=== PATIENT | female | born 1930 | race Caucasian/White ===

== ENCOUNTER 2016-05-21 13:48 | Inpatient (IN) ==
--- NOTE | 2016-05-21 10:32 | Discharge Summary ---
Date of Encounter: 05/22/16 Time of Encounter: 06:39 - Discharge Diagnosis (1) Arthritis of left knee Priority: Primary Status: Acute (2) HTN (hypertension) Priority: Secondary Status: Chronic Qualifiers: Hypertension type: unspecified secondary hypertension Qualified Code(s): I15.9 - Secondary hypertension, unspecified; I15 - Secondary hypertension (3) Memory deficit Priority: Secondary Status: Chronic (4) Dementia Priority: Secondary Status: Chronic Qualifiers: Dementia type: unspecified type Dementia behavioral disturbance: without behavioral disturbance Qualified Code(s): F03.90 - Unspecified dementia without behavioral disturbance - Discharge Medications Home Medications: Cranberry Conc/Ascorbic Acid [Cranberry Concentrate Softgel] 1 cap PO DAILY 12/07 [History] Glucosamine HCl/Chondr Canas A Na [Cvs Glucosamine-Chondr Tablet] 1 tab PO DAILY [History] Multivit-Min/Iron/Folic/Lutein [Centrum Silver Women Tablet] 1 tab PO DAILY 12/07 [History] Acetaminophen [Tylenol] 650 mg PO Q6HR PRN #0 tablet 01/06/16 [Rx] Amlodipine [Norvasc] 5 mg PO DAILY 02/15/16 [History] Polyethylene Glycol 3350 [MiraLAX] 17 gm PO DAILY #14 powd.pack 02/18/16 [Rx] Aspirin Enteric Coated [Aspirin EC] 325 mg PO Q12H #30 tablet.dr 05/21/16 [Rx] Bisacodyl [Dulcolax] 10 mg RC DAILY PRN 05/21/16 [History] Cholecalciferol (D-3) [Vitamin D] 1,000 unit PO DAILY 05/21/16 [History] Lactose-Reduced Food [Boost] 237 ml PO TID 05/21/16 [History] OxyCODONE/APAP 5/325 [Percocet 5/325 MG] 1 - 2 tab PO Q4HR PRN #25 tablet [Rx] Sennosides/Docusate Sodium [Senna Plus] 2 tab PO BID 05/21/16 [History] Allergies/Adverse Reactions: Allergies No Known Allergies Allergy (Verified 01/01/16 20:45) Primary care physician: Antonio Voss MD - Patient Status Disposition: Transfer Inpatient Rehab Fac Condition: Good Functional capacity at discharge: uses cane/walker Overall status at discharge: patient is progressing back to baseline - Discharge Instructions Follow Up With: Antonio Voss MD [Primary Care Provider] - - Hospital Course Hospital course: Ms. Metzger is a 85 year old female The patient had an uneventful postoperative course. They received antibiotics and physical therapy and were discharged in stable condition. There will follow -up in the office in 2 weeks. Aspirin DVT prophylaxis - Time Spent with Patient Total time spent providing and/or coordinating discharge services:
--- NOTE | 2016-05-21 13:49 | History & Physical Report ---
Date of Encounter: 05/21/16 Time of Encounter: 13:49 24 Hour HP Update - Instructions Instructions: If the History and Physical is less than 30 days old and was completed prior to A.M. admission and or procedure and has NOT been updated on calendar day of procedure please complete this update prior to performing procedure. - Update Patient reports changes in Medical Condition: No Changes in examination, assessment, or condition: No Changes in Medication: No Preop tests/diagnostics Reviewed: Yes Surgery Remains Indicated: Yes Consent for Planned Operative Procedure(s) Verified: Yes - Pre-Operative Checklist Preoperative Checklist Indicated: No Prophylactic Antibiotic Ordered: Yes Is VTE Prophylaxis Indicated?: Yes
--- NOTE | 2016-05-21 13:56 | Anesthesia Evaluation PreOp ---
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) Other Medical History: Denies Any Significant HX Anesthesia History: No Prior Anesthetic Complications Alcohol Use: none Drug use: none Medications and Allergies Cranberry Conc/Ascorbic Acid [Cranberry Concentrate Softgel] 1 cap PO DAILY 12/07 [History] Glucosamine HCl/Chondr Canas A Na [Cvs Glucosamine-Chondr Tablet] 1 tab PO DAILY [History] Multivit-Min/Iron/Folic/Lutein [Centrum Silver Women Tablet] 1 tab PO DAILY 12/07 [History] Acetaminophen [Tylenol] 650 mg PO Q6HR PRN #0 tablet 01/06/16 [Rx] Amlodipine [Norvasc] 5 mg PO DAILY 02/15/16 [History] Polyethylene Glycol 3350 [MiraLAX] 17 gm PO DAILY #14 powd.pack 02/18/16 [Rx] Aspirin Enteric Coated [Aspirin EC] 325 mg PO Q12H #30 tablet. 05/21/16 [Rx] Bisacodyl [Dulcolax] 10 mg RC DAILY PRN 05/21/16 [History] Cholecalciferol (D-3) [Vitamin D] 1,000 unit PO DAILY 05/21/16 [History] Lactose-Reduced Food [Boost] 237 ml PO TID 05/21/16 [History] OxyCODONE/APAP 5/325 [Percocet 5/325 MG] 1 - 2 tab PO Q4HR PRN #25 tablet [Rx] Sennosides/Docusate Sodium [Senna Plus] 2 tab PO BID 05/21/16 [History] Allergies No Known Allergies Allergy (Verified 01/01/16 20:45) - Meds/Allergy Pre-op Review Medications Reviewed: Yes Allergies Reviewed: Yes Beta Blockers on Current Med List: No Anesthesia Results - Labs Laboratory Tests 05/11/16 05/11/16 05/11/16 13:46 13:46 13:46 WBC 7.9 Hgb 13.1 Hct 41.1 Plt Count 245 PT 11.2 INR 1.0 APTT 30.2 Sodium 138 Potassium 4.1 Chloride 105 Carbon Dioxide 25 BUN 17 Creatinine 0.85 Est GFR ( Amer) > 60 Est GFR (Non-Af Amer) > 60 BUN/Creatinine Ratio 20 - Imaging EKG: report reviewed, image reviewed (SR; RBBB; nonspecific ST-T) Anesthesia Exam Weight: 73 kg NPO (# of Hours): >> 8 hrs - HEENT Pupil (Motor): Pupils equal, EOMI Mallampati: II Teeth: Edentulous Denture Type: Upper: Complete, Lower: Complete Oral Opening: Greater than 3 - 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
[2016-05-21] MEDS ORDERED: *HR* FentaNYL (PF) 100 MCG/2 ML VIAL ONE ×2 (14:07→15:39)
[2016-05-21] MEDS ORDERED: *HR* Propofol 200 MG/20 ML VIAL IVP ONE (14:07)
[2016-05-21] MEDS ORDERED: Lidocaine -MPF 2% 2 ML VIAL ONE (14:07)
[2016-05-21] MEDS ORDERED: CeFAZolin Pre 2,000 MG/100 ML 2,000 MG/100 ML BAG IVPB ONE (14:19)
[2016-05-21] MEDS ORDERED: Ringers Solution, Lactated 1,000 ML IVC SCH (14:30)
[2016-05-21] MEDS ORDERED: ROPIVACAINE HCL/PF 0.5% 30 ML VIAL ONE (14:33)
[2016-05-21] MEDS ORDERED: Tetracaine/PF 20 MG/2 ML AMPUL SPINA ONE (14:33)
[2016-05-21] MEDS ORDERED: Bupivacaine/Clonidine Syringe 1 EACH SYRINGE ONE (14:34)
[2016-05-21] MEDS ORDERED: *HR* Promethazine 25 MG/ML VIAL IVP PRN (15:25)
[2016-05-21] MEDS ORDERED: *HR* HYDROmorphone (PF) 1 MG/ML SYRINGE IVP PRN ×2 (15:25→17:00)
[2016-05-21] MEDS ORDERED: Ondansetron 4 MG/2 ML VIAL IVP ONE (15:25)
[2016-05-21] MEDS ORDERED: Ketorolac 30 MG/ML VIAL ONE (15:45)
--- NOTE | 2016-05-21 15:57 | Orthopedic Operative Note ---
Date of procedure: 05/21/16 Pre-op diagnosis: Left knee arthritis Post-op diagnosis: same Procedure: Procedure: Left Total knee replacement Estimated blood loss: 200 cc Hardware: Arthrex Femur: 5 Tibia: 5 PS insert: 12 Patella: 40 Exam Under anesthesia: Loss full extension and 30 degrees varus alignment flexion 90 degrees Procedural Notes: Grade 4 arthritic changes all 3 compartments. Operative procedure: The patient was brought to the operating room and placed on the operating room table. After general anesthesia was administered the operative knee was examined. Findings were noted in the exam under anesthesia. The operative extremity was prepped and draped in sterile surgical fashion. The patient received IV antibiotics prior to skin incision. A standard midline incision was made centered over the patella. The incision was made through the skin and subcutaneous tissue. A medial parapatellar tendon approach was performed. Care was taken to preserve tissue along the medial aspect of the patella. And to protect the patella tendon. The deep MCL was released off the medial tibia. The infra patella fat pad was excised. Knee was brought into flexion. Patient noted to have grade 4 arthritic changes all 3 compartments. The entry hole was made for the intramedullary femoral guide. The guide was seated in 6 degrees of valgus. Anterior cut was made followed by the distal cut. The ACL the PCL the medial and the lateral menisci were excised. The tibia was subluxed forward. The entry hole was made for the intramedullary tibial guide. Guide was seated to resect 2 mm off the more abnormal side. The knee was brought into flexion the distal femur was sized to a 5. The femoral guide was seated, the anterior cut was made followed by the posterior condylar cut, followed by the chamfer cuts. The finishing guide was seated the box cut was made and the lug holes were drilled. The tibia was sized to a 5, the tibial tray was seated and prepared with the large drill followed by the fin cutter. Trial reduction revealed full extension no varus valgus instability with the appropriate 12 PS Urszula. The patella was everted and cut was made at the level of the insertion of the quadriceps and patella tendon. The patella was sized to a 40 the guide was seated and the lug holes are drilled. Trial reduction revealed excellent patella tracking. All trial components were removed all bony surfaces were irrigated. The tibia was cemented first followed by the femur. The 12 PS Urszula was seated and the knee was brought into full extension. The patella was cemented and held in place with the patellar holding clamp. After the cement had hardened, the knee sat for 2 minutes with a Betadine saline solution. The knee was then irrigated out with 2 L of pulse irrigation. The extensor mechanism was closed with #2 FiberWire suture and #2 PDS suture. The subcutaneous tissue was then irrigated and closed deep with #1 PDS suture superficially with 0 PDS suture and skin was closed with skin simran. The patient was then placed in a sterile dressing and a postoperative brace extubated and transferred to recovery room in stable condition. Anesthesia: GETA Surgeon: Ulisses Rucker (metal forger's assistant Spring MCDANIEL) Condition: stable Disposition: PACU
[2016-05-21] MEDS: Ringers Solution, Lactated 1,000 ML IVC SCH ×2 (16:22→20:25)
[2016-05-21 16:54] LABS: Hematocrit 37.8 % (35.3-44.9); Hemoglobin 12.2 g/dL (11.5-15.4)
--- NOTE | 2016-05-21 16:55 | Anesthesia Evaluation Post Op ---
Date of Encounter: 05/21/16 Time of Encounter: 16:56 - Vital Signs Vital Signs: Vital Signs - Last 8 Hours Temp Pulse Resp BP Pulse Ox 05/21/16 16:42 73 12 135/82 94 L 05/21/16 16:32 76 12 115/79 94 L 05/21/16 16:22 98.9 F 84 12 129/78 97 05/21/16 14:39 98.1 F 57 16 154/78 94 L Intake and Output 05/21/16 05/21/16 05/21/16 07:59 15:59 23:59 Output Total 300 / 300 Balance -300 / -300 Output: Estimated Blood Loss 300 / 300 Other: Weight 72.575 kg Patient Weight 05/21/16 23:59 Weight 72.575 kg - Lungs Lungs: Clear Ascult./Percussion - Airway Airway: Non-obstructed - Cardiovascular Regular Rate, Baseline Rhythm - Mental Status Mental Status: Alert & Oriented, Answers Appropriately - Pain Pain Scale: 0 Pain Scale used: Numeric (1 - 10) - Nausea Vomiting Nausea Vomiting: Not Present - Hydration Hydration: Tolerates oral liquids - Discharge PostOp Status: Transfer Patient to floor
[2016-05-21] MEDS ORDERED: NON-FORMULARY MEDICATION 1 EACH EACH (Lactose-Reduced Food [Boost] 237 ML) PO SCH (17:00)
[2016-05-21] MEDS ORDERED: Sennosides 8.6 MG TABLET PO PRN (17:00)
[2016-05-21] MEDS ORDERED: *HR* OxyCODONE Immed Rel 5 MG TABLET PO PRN (17:00)
[2016-05-21] MEDS ORDERED: Acetaminophen 325 MG TABLET PO PRN (17:00)
[2016-05-21] MEDS ORDERED: MOM Conc 10 ML UD.LIQ PO PRN (17:00)
[2016-05-21] MEDS ORDERED: Naloxone 0.4 MG/ML INJ IVP PRN (17:00)
[2016-05-21] MEDS ORDERED: Ondansetron 4 MG/2 ML VIAL IVP PRN (17:00)
[2016-05-21] MEDS ORDERED: Bisacodyl 10 MG RECTAL SUPPOSITORY RC PRN (17:00)
[2016-05-21] MEDS ORDERED: Ketorolac 15 MG/ML VIAL IVP ONE (17:53)
[2016-05-21] MEDS ORDERED: *HR* Enoxaparin 30 MG/0.3 ML SYRINGE SQ SCH (18:00)
--- NOTE | 2016-05-21 18:04 | Anesthesia Procedures ---
Date of Encounter: 05/21/16 Time of Encounter: 18:02 Procedures: Anesthesia - Nerve Block Procedure Date: 05/21/16 Time: 15:00 Allergies/Adv Reactions: nkda Pre-op Diagnosis: L knee pain Surgical Procedure: L total knee Checklist: Correct Patient Identifier, Correct procedure, History checked Correct side: Left Blood Thinner: Yes Monitor Applied: EKG, BP, Pulse Oximetry Supplemental Oxygen via Nasal Cannula (L/min): 2 Sedation: Fentanyl (mcg): 100 Indication: Post Op Analgesia Pre-op Neuro Deficits: No Block Type: Femoral Catheter placed: No Sterile Technique: No Ultrasound used: Yes Anatomy identified: Yes Visual spread of Local: Yes Neuro Stimulation: Yes Nerve Stimulator Range: 0.2 - 0.4 mA Blood on Needle Aspiration: No Smooth Injection of Local: Yes Pain with Injection of Local: No Prep: Chlorhexadine Needle: 22 x 50 mm Stimuplex Local: 0.25% Bupivicaine w/Clonidine 20 mcg/cc Volume (cc): 20 Number of Attempts: 1 Complications: None/effective block
[2016-05-21] MEDS: *HR* Enoxaparin 30 MG/0.3 ML SYRINGE SQ SCH (18:09)
[2016-05-21] MEDS: Sennosides/Docusate Sodium TABLET PO SCH (20:21)
[2016-05-21] MEDS ORDERED: Temazepam 15 MG CAPSULE PO PRN (21:00)
[2016-05-22] MEDS: ceFAZolin 2,000 MG in D5% in Water 100 ML IVPB SCH ×2 (00:36→07:10)
[2016-05-22] MEDS: *HR* Enoxaparin 30 MG/0.3 ML SYRINGE SQ SCH (05:26)
--- NOTE | 2016-05-22 06:40 | Orthopedics Progress Note ---
Date of Encounter: 05/22/16 Time of Encounter: 06:40 - Assessment and Plan (1) Arthritis of left knee Current Visit: Yes Status: Acute (2) HTN (hypertension) Current Visit: No Status: Chronic Qualifiers: Hypertension type: unspecified secondary hypertension Qualified Code(s): I15.9 - Secondary hypertension, unspecified; I15 - Secondary hypertension (3) Memory deficit Current Visit: No Status: Chronic (4) Dementia Current Visit: No Status: Chronic Qualifiers: Dementia type: unspecified type Dementia behavioral disturbance: without behavioral disturbance Qualified Code(s): F03.90 - Unspecified dementia without behavioral disturbance Subjective Interval history: Patient was seen this morning doing well without complaints. Afebrile vital signs stable. Operative extremity: Neurovascularly intact Dressing clean dry and intact Calves nontender Assessment and plan: Continue with postoperative care Hematocrit 37 discharged today Objective Vital signs: Vital Signs Temp Pulse Resp BP Pulse Ox 05/22/16 06:22 97.5 F L 97 16 131/76 93 L 05/22/16 04:00 97.5 F L 52 16 139/87 93 L 05/22/16 00:00 97.7 F 65 17 116/71 95 05/21/16 20:20 98.3 F 63 15 130/77 94 L 05/21/16 20:07 95 05/21/16 19:30 98.2 F 77 16 133/73 95 05/21/16 18:17 98.1 F 47 14 130/68 98 05/21/16 17:46 62 98 05/21/16 17:43 54 12 98 05/21/16 17:39 55 12 143/80 97 05/21/16 17:33 42 12 144/74 99 05/21/16 17:24 45 12 136/76 97 05/21/16 17:23 40 05/21/16 17:15 97.9 F 48 12 129/73 93 L 05/21/16 17:00 64 14 131/76 94 L 05/21/16 16:52 98.6 F 68 14 132/79 94 L 05/21/16 16:42 73 12 135/82 94 L 05/21/16 16:32 76 12 115/79 94 L 05/21/16 16:22 98.9 F 84 12 129/78 97 05/21/16 14:39 98.1 F 57 16 154/78 94 L Intake and Output 05/21/16 05/21/16 05/22/16 15:59 23:59 07:59 Intake Total 2370 / 2370 550 / 550 Output Total 300 / 300 Balance 2070 / 2070 550 / 550 Intake: IV Fluids 1999 / 1999 100 / 100 Lactated Ringers 1,000 ML 1999 / 1999 @ 75 mls/hr IVC .[id number] [id number] Rx#:[id number] Ancef 2,000 MG In 100 / 100 Dextrose 5% 100 ML @ 200 mls/hr IVPB Q8H OZZY Rx#: [id number] Oral 370 / 370 450 / 450 Output: Estimated Blood Loss 300 / 300 Other: # Urine Diapers 1 1 Weight 72.575 kg - Labs CBC & BMP: 05/21/16 16:44 - VTE Documentation of Mechanical Device: Venous foot pump, device Consult Discharge Plan - Plan Referrals: Antonio Voss MD [Primary Care Provider] -
[2016-05-22 06:52] LABS: Hematocrit 34.9 % (35.3-44.9); Hemoglobin 11.6 g/dL (11.5-15.4)
[2016-05-22 07:02] LABS: BUN/Creatinine Ratio 20 (6-26); Blood Urea Nitrogen 19 mg/dL (7-20); Calcium 9.7 mg/dL (8.6-10.8); Carbon Dioxide 23 mEq/L (19-29); Chloride 103 mEq/L (98-109); Glucose 126 mg/dL (70-99); Osmolality,Calculated 284 (280-300); Potassium 4.4 mEq/L (3.5-4.5); Sodium 135 mEq/L (136-145); eGFR For African Americans > 60 (> 60); eGFR For Non-African Americans 56 (> 60)
[2016-05-22] MEDS: Sennosides/Docusate Sodium TABLET PO SCH (08:08)
[2016-05-22] MEDS: *HR* OxyCODONE Immed Rel 5 MG TABLET PO PRN ×2 (08:11→12:18)
[2016-05-22] MEDS ORDERED: (Glucosamine Hcl/Chondr Su A Na [Cvs Glucosamine-Chon PO SCH (09:00)
[2016-05-22] MEDS ORDERED: CRANBERRY PO SCH (09:00)
[2016-05-22] MEDS ORDERED: ASCORBIC ACID PO SCH (09:00)
[2016-05-22] MEDS ORDERED: amLODIPine 5 MG TABLET PO SCH (09:00)
[2016-05-22] MEDS ORDERED: Cholecalciferol (D-3) 1,000 UNIT TABLET PO SCH (09:00)
[2016-05-22] MEDS ORDERED: Multivit/Ca/Min/Fe/FA 1 TAB TABLET PO SCH (09:00)
[2016-05-22 11:18] VITALS: BP 130/64
--- NOTE | 2016-05-23 08:59 | Electrocardiograph Report ---
[address] [place], [place] [address] Test Date: 2016-05-21 Pat Name: Rhianna Metzger Department: 114 Room: 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
== END 2016-05-22 13:12 | DRG 470 ==
LOC: SAMDAY 13:48 → 3NENU 17:00
PROVIDERS: ADMIT Orthopaedic Surgery; ATTEND Orthopaedic Surgery

== ENCOUNTER 2018-09-23 13:13 | Inpatient (IN) ==
[2018-09-23] MEDS ORDERED: Acetaminophen 325 MG TABLET PO PRN (21:04)
[2018-09-23] MEDS ORDERED: Ipratropium/Albuterol Neb 3 ML IH PRN (21:04)
[2018-09-23] MEDS ORDERED: Ondansetron 4 MG/2 ML VIAL IVP PRN (21:04)
[2018-09-23] MEDS: Ringers Solution, Lactated 1,000 ML IVC SCH (21:50)
[2018-09-23] MEDS: Azithromycin 500 MG in D5% in Water 250 ML IVPB SCH (21:52)
[2018-09-23 21:59] LABS: Basophils # 0.1 K/mcL (0.0-0.2); Basophils % 0.8 %; Eosinophils # 0.2 K/mcL (0.0-0.6); Eosinophils % 2.1 %; Hematocrit 38.9 % (35.3-44.9); Immature Granulocytes % 1.5 % (0-4); Lymphocytes # 1.2 K/mcL (0.6-4.6); Lymphocytes % 12.4 %; Mean Corpuscular HGB Conc 33.4 g/dL (31.6-35.5); Mean Corpuscular Hemoglobin 31.6 pg (28.0-33.3); Mean Corpuscular Volume 94.6 fL (83.0-100.0); Mean Platelet Volume 9.4 fL (9.4-12.4); Monocytes % 10.9 %; Neutrophils # 6.7 K/mcL (1.6-8.9); Platelet Count 258 K/mcL (140-400); Red Blood Count 4.11 M/mcL (3.82-4.97); Red Cell Distribution Width 12.7 % (11.5-14.5); Segmented Neutrophils % 72.3 %; White Blood Count 9.3 K/mcL (4.3-11.1)
[2018-09-23] MEDS ORDERED: Vancomycin 0 MG in 0.9 % Sodium Chloride 250 ML IVPB SCH (22:00)
[2018-09-23 22:06] LABS: INR 1.2; Prothrombin Time 13.7 Seconds (9.4-12.1)
[2018-09-23 22:09] LABS: Activated Partial Thrombo Time 38.6 Seconds (26.0-36.0)
--- NOTE | 2018-09-23 22:16 | Internal Med History&Physical ---
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 Over there she was diagnosed with a pneumonia and started on empiric antibiotics. However, it was noted that she was not improving and her oxygenation became worse requiring placement on high flow oxygen to maintain adequate saturation levels. A CT of her chest was done today which reportedly showed left lung collapse. On my review of the CT scan there is significant left pleural effusion causing compressive atelectasis as well as extensive consolidations and intrinsic atelectasis possibly from mucous plugging. She arrives here hemodynamically stable and has no complaints at this time. She expresses her wishes to be DNR [facility] and has the documents for this. Vitals: Reviewed General: Well-developed elderly woman lying in bed in no acute distress. Skin: Warm and dry. HEENT: Moist mucous membranes. Mild conjunctivae pallor. Neck: No carotid bruits. No palpable thyroid. Chest: Reduced thoracic expansion with significantly diminished breath sounds in the left lung field. Heart: Normal S1 & S2; rhythmic. No rubs or murmurs. Abdomen: Non-distended, soft and non-tender to palpation. No peritoneal reaction. Extremities: No clubbing, cyanosis or edema. No calf tenderness. Normal distal pulses. Neurological: Awake, alert and oriented to person, place. No focal deficits. Psych: Affect appropriate. Assessment/Plan 1. Acute respiratory failure: Suspect secondary to extensive pneumonia complicated by parapneumonic pleural effusions as well as atelectasis from mucous plugging possibly. She is currently doing well on high flow oxygen however before this admission she was never on home oxygen at all. We will continue supplemental oxygen as needed, provide nebulizer therapy overnight and consult the pulmonary service for consideration of bronchoscopy if deemed feasible. Consideration should also be given to a thoracentesis to decompress the pleural space. 2. Pneumonia: Complicated as noted above. We will get another set of blood cultures and attempt to obtain sputum cultures if she can expectorate. Check urine antigen serologies. Follow culture data from [facility]. Continue empiric vancomycin, cefepime and azithromycin until we ensure stability and appr opriate de-escalation can be done. If bronchoscopy is done, extensive cultures should be sent. 3. Hypertension: Well controlled on amlodipine. 4. Pulmonary embolism: Reportedly on apixaban. We need to obtain medication reconciliation. In the interim anticoagulant will be on hold in anticipation of any procedures done. 5. DVT prophylaxis: SubQ heparin ordered. Past Med Surg Social Fam HX - Past Medical History Medical history: arthritis Additional medical history: htn. arthritis of knee Psychiatric history: no psych history - Past Surgical History Surgical History: hysterectomy Additional surgical history: D&C. Hysterectomy. Left femur. left hip - Social History Smoking Status: Never smoker Smokeless Tobacco Status: No Alcohol use: none Drug use: none - Family History Mother Family Member Ethnicity: Non- Twin of Family Member: Yes, Identical Living Status: Hx Family Cardiac Disorders: No Hx Family Respiratory Disorders: No Hx Family Cancer: No Hx Family GI Disorders: No Hx Family Endocrine Disorder: No Hx Family Neuromuscular Disorders: No Hx Family Neurologic Disorders: No Hx Family HEENT Disorders: No Hx Family Autoimmune Disorders: No Internal Medicine - H&P: Meds Cranberry Conc/Ascorbic Acid [Cranberry Concentrate Softgel] 1 cap PO DAILY 01/02/16 [History] Glucosamine HCl/Chondr Canas A Na [Cvs Glucosamine-Chondr Tablet] 1 tab PO DAILY 01/02/16 [History] Multivit-Min/Iron/Folic/Lutein [Centrum Silver Women Tablet] 1 tab PO DAILY 01/02/16 [History] Acetaminophen [Tylenol] 650 mg PO Q6HR PRN #0 tablet 01/06/16 [Rx] amLODIPine [Norvasc] 5 mg PO DAILY 02/15/16 [History] Polyethylene Glycol 3350 [MiraLAX] 17 gm PO DAILY #14 powd.pack 02/18/16 [Rx] Aspirin Enteric Coated [Aspirin EC] 325 mg PO Q12H #30 tablet. 05/21/16 [Rx] Bisacodyl [Dulcolax] 10 mg RC DAILY PRN 05/21/16 [History] Cholecalciferol (D-3) [Vitamin D] 1,000 unit PO DAILY 05/21/16 [History] Lactose-Reduced Food [Boost] 237 ml PO TID 05/21/16 [History] OxyCODONE/APAP 5/325 [Percocet 5/325 MG] 1 - 2 tab PO Q4HR PRN #25 tablet 05/21/16 [Rx] Sennosides/Docusate Sodium [Senna Plus] 2 tab PO BID 05/21/16 [History] Allergy/AdvReac Type Severity Reaction Status Date / Time No Known Allergies Allergy Verified 01/01/16 20:45 All Systems PM: A 10-system review of systems was performed and is negative for pertinent findings except as documented above in the HPI. - Constitutional Vitals: Temp Pulse Resp BP Pulse Ox 98.0 F 99 18 174/93 93 09/23/18 20:55 09/23/18 20:55 09/23/18 20:55 09/23/18 20:55 09/23/18 21:09 Exam: . Internal Med - H&P Results - Labs CBC & Chem 7: 09/23/18 21:39 Labs: Short CBC 09/23/18 Range/Units 21:39 WBC 9.3 (4.3-11.1) K/mcL Hgb 13.0 (11.5-15.4) g/dL Hct 38.9 (35.3-44.9) % Plt Count 258 (140-400) K/mcL Neutrophils # 6.7 (1.6-8.9) K/mcL - Time Spent With Patient Total time spent is greater than 50% in coordination of care (as documented) at patient's floor/unit and/or counseling patient:
[2018-09-23 22:20] LABS: Alanine Aminotransferase 31 Units/L (7-52); Albumin 3.7 g/dL (3.5-5.7); Albumin/Globulin Ratio 1.2 (1.1-2.2); Alkaline Phosphatase 73 Units/L (34-104); Aspartate Amino Transferase 38 Units/L (13-39); BUN/Creatinine Ratio 12 (6-26); Bilirubin,Direct 0.1 mg/dL (0.0-0.2); Bilirubin,Indirect 0.5 mg/dL (0.0-1.2); Bilirubin,Total 0.6 mg/dL (0.3-1.0); Blood Urea Nitrogen 7 mg/dL (8-23); Carbon Dioxide 22 mEq/L (23-29); Chloride 102 mEq/L (98-107); Glucose 146 mg/dL (70-105); Osmolality,Calculated 273 (280-300); Potassium 3.8 mEq/L (3.5-5.1); Sodium 131 mEq/L (136-145); Total Protein 6.7 g/dL (6.4-8.9); eGFR For African Americans > 60 (> 60); eGFR For Non-African Americans > 60 (> 60)
[2018-09-23] MEDS: Ipratropium/Albuterol Neb 3 ML IH SCH (23:39)
[2018-09-23] MEDS: Cefepime HCl 1,000 MG in 0.9 % Sodium Chloride Mini Bag 100 ML IVPB SCH (23:43)
[2018-09-24] MEDS: Ipratropium/Albuterol Neb 3 ML IH SCH ×2 (04:14→07:35)
[2018-09-24] MEDS: *HR* Heparin 5,000 UNIT/ML VIAL SQ SCH ×2 (06:25→17:45)
--- NOTE | 2018-09-24 06:34 | Pulmonology Consult Note ---
Date of Encounter: 09/24/18 Time of Encounter: 06:33 Assessment and Plan (1) Acute respiratory failure with hypoxia Current Visit: Yes Status: Acute This is likely secondary to pneumonia complicated by mucous plugging and volume loss some contribution from underlying pleural effusion but likely this is trivial. Recommend continuation of oxygen to keep saturation around 92%. She may benefit from BiPAP especially at night in the acute situation or for any increased work of breathing. Out of bed to chair and early ambulation are effective in mitigating effects of atelectasis leading to VQ mismatch and hypoxia (2) Pneumonia Current Visit: Yes Status: Acute Patient has a left-sided unresolved infiltrate and likely mucous plug. She will need formal speech and swallow evaluation if not already performed in the outside facility I did not see any record of this in my review of her chart. There is concern here for chronic aspiration and inability to effectively cough out secretions. She will need bronchopulmonary hygiene including flutter valve while inpatient and incentive spirometry Agree with antimicrobial coverage to cover for hospital associated pathogens such as MRSA and Pseudomonas until results of bronchoscopy come back Qualifiers: Laterality: left Lung location: lower lobe of lung Qualified Code(s): B59 - Pneumocystosis (3) Mucus plugging of bronchi Current Visit: Yes Status: Acute A bronchoscopy is recommended. The procedure , risks, benefits, complications, and expected outcomes have been reviewed. Benefits of diagnosis, as well as risks to include bleeding, infection, pneumothorax which may require surgical intervention, and in a small population. The patient is aware that sometimes test is nondiagnostic. Discussed with patient and her daughter and they agree to proceed. Bronchoscopy planned for around noon today this is approximately 24 hours from last dose of DOAC Keep nothing by mouth until procedure (4) Pleural effusion Current Visit: Yes Status: Acute Family small left-sided effusion possibly parapneumonic no clear complex features on the CT scan be difficult to aspirate at bedside and likely unnecessary at this point I think the most important procedures bronchoscopy and that should improve her oxygenation. If further concern post bronchoscopy can consider thoracentesis over the next 24-48 hours. Thank you for the consultation History of Present Illness Consult date: 09/24/18 Requesting physician: Nohemi Burgess Reason for consult: pneumonia Chief complaint: Shortness of Breath History of present illness: This is a pleasant 87-year-old woman with a past medical history of for pulmonary embolus on DOAC (Apixaban) who was transferred from [facility] to [place] overnight for pneumonia. Apparently the patient had been on broad-spectrum antibiotics for several days at [facility] but had failure to improve in fact was requiring high flow oxygen. A CT PE was performed which is negative for filling defect was not notable for significant left sided volume loss and pleural effusion. There was concern for possible mucous plugging and parapneumonic effusion. Pulmonary was consulted for further evaluation. The patient's other past medical history is significant for early dementia complicated by hip fracture approximately 3 years ago which resulted in ongoing care in a custodial facility in [place]. I asked the patient how she was feeling today and she was very sleepy but easily arousable say that she is a bit short of breath and having difficulty coughing up phlegm. Oxygen saturation appears to be at around 13 L high flow nasal cannula right now. In the room with her daughter Queenie who is her healthcare power of it teacher and primary decision maker. She states that her mother was admitted to [facility] in Wednesday and treated for pneumonia unfortunately clinical course was getting worse she had spiking fevers and imaging as outlined above prior to transfer to [place]. Per report the patient is not wearing oxygen at baseline is a lifelong nonsmoker with no significant industrial or occupational exposures. Last dose of anticoagulation appears to have been at the latest yesterday sometime prior to transfer although the exact timing is not clear Past Med Surg Social Fam HX - Past Medical History Medical history: arthritis Additional medical history: htn. arthritis of knee Psychiatric history: no psych history - Past Surgical History Surgical History: hysterectomy Additional surgical history: D&C. Hysterectomy. Left femur. left hip - Social History Smoking Status: Never smoker Smokeless Tobacco Status: No Alcohol use: none Drug use: none - Family History Mother Family Member Ethnicity: Non- Twin of Family Member: Yes, Identical Living Status: Hx Family Cardiac Disorders: No Hx Family Respiratory Disorders: No Hx Family Cancer: No Hx Family GI Disorders: No Hx Family Endocrine Disorder: No Hx Family Neuromuscular Disorders: No Hx Family Neurologic Disorders: No Hx Family HEENT Disorders: No Hx Family Autoimmune Disorders: No Medications and Allergies Cranberry Conc/Ascorbic Acid [Cranberry Concentrate Softgel] 1 cap PO DAILY 01/02/16 [History] Glucosamine HCl/Chondr Canas A Na [[facility] Glucosamine-Chondr Tablet] 1 tab PO DAILY 01/02/16 [History] Multivit-Min/Iron/Folic/Lutein [Centrum Silver Women Tablet] 1 tab PO DAILY 01/02/16 [History] Acetaminophen [Tylenol] 650 mg PO Q6HR PRN #0 tablet 01/06/16 [Rx] amLODIPine [Norvasc] 5 mg PO DAILY 02/15/16 [History] Polyethylene Glycol 3350 [MiraLAX] 17 gm PO DAILY #14 powd.pack 02/18/16 [Rx] Aspirin Enteric Coated [Aspirin EC] 325 mg PO Q12H #30 tablet. 05/21/16 [Rx] Bisacodyl [Dulcolax] 10 mg RC DAILY PRN 05/21/16 [History] Cholecalciferol (D-3) [Vitamin D] 1,000 unit PO DAILY 05/21/16 [History] Lactose-Reduced Food [Boost] 237 ml PO TID 05/21/16 [History] OxyCODONE/APAP 5/325 [Percocet 5/325 MG] 1 - 2 tab PO Q4HR PRN #25 tablet 05/21/16 [Rx] Sennosides/Docusate Sodium [Senna Plus] 2 tab PO BID 05/21/16 [History] Allergy/AdvReac Type Severity Reaction Status Date / Time No Known Allergies Allergy Verified 01/01/16 20:45 All Systems: The remainder of the systems were reviewed and are negative Physical Examination Vital Signs: Vital Signs, Last 4 Hours Temp Pulse Resp BP Pulse Ox 09/24/18 05:01 98.0 F 94 18 157/90 94 09/24/18 04:15 16 92 General appearance: no acute distress, other (Sleepy but easily arousable) Eyes: nonicteric ENT: other (Edentulous) Neck: supple Effort: mildly labored Auscultation: left: diminished breath sounds, bilateral: rhonchi Cardiovascular: regular rate and rhythm Gastrointestinal: normoactive bowel sounds, soft, non-tender Integumentary: normal Extremities: edema (Trace lower extremity edema) Musculoskeletal: no deformities normal mental status, non-focal exam, pupils equal and round, CN II-XII normal mood appropriate Results - Laboratory Findings CBC and BMP: 09/23/18 21:39 09/23/18 21:39 PT/INR, D-dimer PT 13.7 Seconds (9.4-12.1) H 09/23/18 21:39 Abnormal lab findings: Abnormal lab results PT 13.7 Seconds (9.4-12.1) H 09/23/18 21:39 APTT 38.6 Seconds (26.0-36.0) H 09/23/18 21:39 Sodium 131 mEq/L (136-145) L 09/23/18 21:39 Carbon Dioxide 22 mEq/L (23-29) L 09/23/18 21:39 BUN 7 mg/dL (8-23) L 09/23/18 21:39 Creatinine 0.59 mg/dL (0.60-1.20) L 09/23/18 21:39 Glucose 146 mg/dL (70-105) H 09/23/18 21:39 Calculated Osmolality 273 (280-300) L 09/23/18 21:39 Lactic Acid 2.7 mmol/L (0.5-2.2) H 09/24/18 02:07 - Microbiology Findings Microbiology Findings: Microbiology, Last 48 Hours 09/23/18 21:47 Blood Culture - Preliminary Peripheral Venipuncture Culture is incubating and being continuously monito red for growth. Final report to follow. 09/23/18 21:39 Blood Culture - Preliminary Peripheral Venipuncture Culture is incubating and being continuously monitored for growth. Final report to follow. - Diagnostic Findings CT scan - chest: report reviewed, image reviewed (Left volume loss with small left-sided pleural effusion there is some aeration of the left upper lobe dense consolidation in the left lower) - Clinical Findings Intake & Output: Intake & Output 09/23/18 09/23/18 09/24/18 15:59 23:59 07:59 Weight 89.7 kg Consult Discharge Plan - Plan Referrals: NONE,PCP [Primary Care Provider] -
[2018-09-24] MEDS: Cefepime HCl 1,000 MG in 0.9 % Sodium Chloride Mini Bag 100 ML IVPB SCH ×2 (08:17→15:49)
[2018-09-24] MEDS: amLODIPine 5 MG TABLET PO SCH (08:18)
--- NOTE | 2018-09-24 12:26 | Anesthesia Evaluation PreOp ---
Date of Encounter: 09/24/18 Time of Encounter: 12:31 - Past History Planned Operation: Bronchoscopy Cardiac History: HTN Pulmonary History: Other (Hx PE Anticoagulated on Apixaban. Admitted 09/23/2018 w/ pneumonia/extensive consolidation/"Lung collapse" presumptively from mucus plugging) MERCHANDISE MARKER History: Denies Any Significant HX Other Medical History: Denies Any Significant HX Anesthesia History: No Prior Anesthetic Complications, Past Anesthesia (D&C, Hyster, L-femur, L-Hip) Alcohol Use: none Drug use: none Medications and Allergies Cranberry Conc/Ascorbic Acid [Cranberry Concentrate Softgel] 1 cap PO DAILY 01/02/16 [History] Glucosamine HCl/Chondr Canas A Na [[facility]vs Glucosamine-Chondr Tablet] 1 tab PO DAILY 01/02/16 [History] Multivit-Min/Iron/Folic/Lutein [Centrum Silver Women Tablet] 1 tab PO DAILY 01/02/16 [History] Acetaminophen [Tylenol] 650 mg PO Q6HR PRN #0 tablet 01/06/16 [Rx] amLODIPine [Norvasc] 5 mg PO DAILY 02/15/16 [History] Polyethylene Glycol 3350 [MiraLAX] 17 gm PO DAILY #14 powd.pack 02/18/16 [Rx] Aspirin Enteric Coated [Aspirin EC] 325 mg PO Q12H #30 tablet.dr 05/21/16 [Rx] Bisacodyl [Dulcolax] 10 mg RC DAILY PRN 05/21/16 [History] Cholecalciferol (D-3) [Vitamin D] 1,000 unit PO DAILY 05/21/16 [History] Lactose-Reduced Food [Boost] 237 ml PO TID 05/21/16 [History] OxyCODONE/APAP 5/325 [Percocet 5/325 MG] 1 - 2 tab PO Q4HR PRN #25 tablet 05/21/16 [Rx] Sennosides/Docusate Sodium [Senna Plus] 2 tab PO BID 05/21/16 [History] Allergy/AdvReac Type Severity Reaction Status Date / Time No Known Allergies Allergy Verified 01/01/16 20:45 - Meds/Allergy Pre-op Review Medications Reviewed: Yes Allergies Reviewed: Yes Beta Blockers on Current Med List: No Anesthesia Results - Labs 09/23/18 21:39 09/23/18 21:39 Laboratory Tests 01/02/16 09/23/18 09/23/18 04:20 21:39 21:39 INR 1.2 APTT 38.6 H Est GFR (Non-Af Amer) > 60 Phosphorus 4.5 Calcium 9.0 Magnesium 2.0 Laboratory Results 09/24/18 09/24/18 02:07 04:45 Lactic Acid 2.7 H 1.8 - Imaging EKG: report reviewed (54bpm - SINUS BRADYCARDIA WITH OCCASIONAL VENTRICULAR PREMATURE COMPLEXES LOW QRS VOLTAGE IN PRECORDIAL LEADS INCOMPLETE RIGHT BUNDLE BRANCH BLOCK PROLONGED QT INTERVAL Electronically Signed On 05-23-2016 8:57:51 EDT by Iain Momin MD) Anesthesia Exam Vital Signs Temp Pulse Resp BP Pulse Ox 09/24/18 11:32 198/90 09/24/18 11:29 16 95 09/24/18 10:26 97.4 F L 65 16 198/93 95 09/24/18 07:36 18 93 09/24/18 07:07 99.3 F 91 18 166/92 93 09/24/18 05:01 98.0 F 94 18 157/90 94 09/24/18 04:15 16 92 09/23/18 23:45 19 93 09/23/18 23:26 98.4 F 99 19 159/80 93 09/23/18 21:09 93 09/23/18 20:55 98.0 F 99 18 174/93 92 Intake and Output 09/23/18 09/24/18 09/24/18 23:59 07:59 15:59 Intake Total 100 / 200 100 / 200 Balance 100 / 200 100 / 200 Intake: IV Fluids 100 / 200 100 / 200 Maxipime 1,000 MG In 0.9 % 100 / 200 100 / 200 Sodium Chloride (Mini-Bag +) 100 ML @ 200 mls/hr IVPB Q8HR [facility] Rx#:[id number] Other: # Urine Diapers 1 1 # Bowel Movement Diapers 1 Weight 89.7 kg Height: 5'5" Weight: 197# BMI = 33 NPO (# of Hours): MNOc - HEENT Pupil (Motor): Pupils equal, EOMI Mallampati: II Teeth: Edentulous Oral Opening: Greater than 3 - MERCHANDISE MARKER LOC: Oriented MERCHANDISE MARKER Motor: Normal RUE, Normal LUE, Normal RLE, Normal LLE, Normal Face MERCHANDISE MARKER Sensory: Normal: RUE, LUE, RLE, LLE, Face - Cardiac Rhythm: Regular Murmur: None - Pulmonary Breath Sounds: bilateral Clear Respiratory Effort: Symmetrical Anesthesia Assess/Plan ASA Score: 3 (HTN, Hx PE, Acute respiratory failure) Level of consciousness: Cooperative, Oriented, Tranquil Anesthetic Plan: General Monitoring Plan: Standard Monitors Recovery Plan: PACU (ds) Anes Supervising Prov Stmt: PT seen/evaluated, R&B Discussed, questions answered and consent obtained. Lo Zaman MD
[2018-09-24] MEDS: Ringers Solution, Lactated 1,000 ML IVC SCH (12:32)
[2018-09-24] MEDS ORDERED: *HR* Propofol 200 MG/20 ML VIAL IVP ONE (12:49)
[2018-09-24] MEDS ORDERED: *HR* FentaNYL (PF) 100 MCG/2 ML VIAL ONE (12:49)
[2018-09-24] MEDS ORDERED: Lidocaine -MPF 4% 5 ML AMPUL ONE (12:51)
[2018-09-24] MEDS ORDERED: Dexamethasone 4 MG/ML VIAL ONE (12:51)
[2018-09-24] MEDS ORDERED: Lidocaine -MPF 2% 2 ML VIAL ONE (12:51)
[2018-09-24] MEDS ORDERED: *HR* Succinylcholine 200 MG/10 ML VIAL IVP ONE (12:51)
[2018-09-24] MEDS ORDERED: Ondansetron 4 MG/2 ML VIAL ONE (12:51)
[2018-09-24] MEDS ORDERED: *HR* PHENYLEPHRINE 1,000 MCG/10 ML SYRINGE IVP ONE (13:46)
[2018-09-24] MEDS ORDERED: Ipratropium/Albuterol Neb 3 ML ONE (14:06)
--- NOTE | 2018-09-24 16:10 | Internal Med Progress Note ---
Hospitalist Progress Note - Encounter Date of Encounter: 09/24/18 Time of Encounter: 16:07 - Subjective Interval History: Evaluated patient earlier today. She was feeling somewhat better compared to yesterday. Was nothing by mouth and awaiting bronchoscopy. Denies any chest pain. No fevers or chills overnight. - Exam Vitals: Temp Pulse Resp BP Pulse Ox 99.3 F 73 17 128/70 91 09/24/18 15:43 09/24/18 15:43 09/24/18 15:43 09/24/18 15:43 09/24/18 15:43 Exam: General: Patient is alert, no acute distress, oriented x 3 ENT: Mucous membranes moist Respiratory: Diminished breath sounds at left base Cardiovascular: Regular rate and rhythm. s1 and s2 normal No clicks, rubs, gallops, or murmurs. No pedal edema Abdomen: Abdomen is soft, nontender. Bowel sounds are present Musculoskeletal: Spontaneously moving all extremities Skin: warm, dry, intact. Neuro: Alert oriented x 3 normal cranial nerves, no focal deficits - Assessment and Plan (1) Acute respiratory failure with hypoxia Current Visit: Yes Status: Acute (2) Pneumonia Current Visit: Yes Status: Acute (3) Mucus plugging of bronchi Current Visit: Yes Status: Acute (4) History of pulmonary embolism Current Visit: Yes Status: Acute (5) HTN (hypertension) Current Visit: Yes Status: Chronic DVT Prophylaxis: Patient is presently on subcutaneous heparin for DVT prophylaxis - Summary of Assessment and Plan Summary of Assessment and Plan: Acute hypoxic respiratory failure: Patient remains on nasal cannula at this time. Due to underlying pneumonia and atelectasis with concern for mucous plugging. Wean FiO2 as tolerated. Mucous plugging of bronchi: Patient underwent bronchoscopy today which showed throughout left tracheobronchial tree and also a mucous plug in the right mainstem bronchus. BAL was performed. Pneumonia: Involving left lower lobe. Community-acquired vs aspiration. Patient currently on cefepime, azithromycin and vancomycin. Will stop cefepime and place patient on Zosyn instead to better treat cover for aspiration. Will also check a MRSA screen. Follow BAL cultures. Blood cultures have been negative so far. Legionella and streptococcal antigens have also been negative. History of pulmonary embolism: Eliquis held for bronchoscopy. Resume Eliquis tomorrow. In the meantime patient on DVT prophylaxis with subcutaneous heparin. Essential hypertension: Blood pressure is well controlled. Her blood pressure was elevated earlier today but she received intravenous hydralazine with improvement. Continue Norvasc. High risk for complications. - Time Spent with Patient Total time spent is greater than 50% in coordination of care (as documented) at patient's floor/unit and/or counseling patient: Internal Medicine: Result - Labs CBC & Chem 7: 09/23/18 21:39 09/23/18 21:39 Labs: Short CBC 09/23/18 Range/Units 21:39 WBC 9.3 (4.3-11.1) K/mcL Hgb 13.0 (11.5-15.4) g/dL Hct 38.9 (35.3-44.9) % Plt Count 258 (140-400) K/mcL Neutrophils # 6.7 (1.6-8.9) K/mcL BMP 09/23/18 21:39 Sodium 131 L Potassium 3.8 Chloride 102 Carbon Dioxide 22 L BUN 7 L Creatinine 0.59 L Glucose 146 H Calcium 9.0 Liver Function 09/23/18 Range/Units 21:39 Total Bilirubin 0.6 (0.3-1.0) mg/dL Direct Bilirubin 0.1 (0.0-0.2) mg/dL AST 38 (13-39) Units/L ALT 31 (7-52) Units/L Alkaline Phosphatase 73 (34-104) Units/L Albumin 3.7 (3.5-5.7) g/dL - ABG Interpretation ABG results: PT/INR, D-dimer PT 13.7 Seconds (9.4-12.1) H 09/23/18 21:39 Consult Discharge Plan - Plan Referrals: NONE,PCP [Primary Care Provider] - (2) Pneumonia Qualifiers: Pneumonia type: due to unspecified organism Laterality: left Lung location: lower lobe of lung Qualified Code(s): J18.1 - Lobar pneumonia, unspecified organism (5) HTN (hypertension) Qualifiers: Hypertension type: essential hypertension Qualified Code(s): I10 - Essential (primary) hypertension
[2018-09-24] MEDS: GuaiFENesin Liq 200 MG/10 ML UDC PO PRN (16:35)
[2018-09-24] MEDS: Piperacillin/Tazobactam 3.375 GM in 0.9 % Sodium Chloride Mini Bag 100 ML IVPB SCH ×2 (17:45→22:51)
[2018-09-24 18:29] LABS: Appearance of Body Fluid Cloudy (Clear); Volume of Body Fluid 27 mL
[2018-09-24 18:45] LABS: Appearance of Body Fluid Cloudy (Clear); Volume of Body Fluid 15 mL
--- NOTE | 2018-09-24 19:27 | Anesthesia Evaluation Post Op ---
Date of Encounter: 09/24/18 Time of Encounter: 14:40 - Vital Signs Vital Signs: Vital Signs Temp Pulse Resp BP Pulse Ox 09/24/18 14:43 98.8 F 89 18 110/69 95 09/24/18 14:33 98.8 F 75 18 113/66 91 09/24/18 14:23 74 20 115/86 90 09/24/18 14:13 71 22 115/67 92 09/24/18 14:03 98.7 F 70 26 145/78 92 09/24/18 13:08 98.2 F 82 20 160/98 88 09/24/18 11:32 198/90 09/24/18 11:29 16 95 09/24/18 10:26 97.4 F L 65 16 198/93 95 09/24/18 07:36 18 93 09/24/18 07:07 99.3 F 91 18 166/92 93 09/24/18 05:01 98.0 F 94 18 157/90 94 09/24/18 04:15 16 92 09/23/18 23:45 19 93 09/23/18 23:26 98.4 F 99 19 159/80 93 09/23/18 21:09 93 09/23/18 20:55 98.0 F 99 18 174/93 92 Intake and Output 09/24/18 09/24/18 09/24/18 07:59 15:59 23:59 Intake Total 1100 / 1450 100 / 1450 250 / 1450 Balance 1100 / 1450 100 / 1450 250 / 1450 Intake: IV Fluids 1100 / 1450 100 / 1450 250 / 1450 Lactated Ringers 1,000 ML @ 100 1000 / 1000 mls/hr IVC .Q10H [facility] Rx#: [id number] Maxipime 1,000 MG In 0.9 % 100 / 200 100 / 200 Sodium Chloride (Mini-Bag +) 100 ML @ 200 mls/hr IVPB Q8HR [facility] Rx#:[id number] Vancocin 1,250 MG In 0.9 % 250 / 250 Sodium Chloride 250 ML @ 166.67 mls/hr IVPB Q12H [facility] Rx#: [id number] Other: # Urine Diapers 1 1 # Bowel Movement Diapers 1 - Lungs Lungs: Clear Ascult./Percussion - Airway Airway: Non-obstructed - Cardiovascular Baseline Rhythm - Mental Status Mental Status: Alert & Oriented, Answers Appropriately - Pain Pain Scale: 0 Pain Scale used: Numeric (1 - 10) - Nausea Vomiting Nausea Vomiting: Not Present - Hydration Hydration: Ice chips - Discharge PostOp Status: Transfer Patient to floor Anes Supervising Prov Stmt: Pt seen/evaluated, VSS and has met criteria for discharge to floor. - MD Junie
[2018-09-24] MEDS: Azithromycin 500 MG in D5% in Water 250 ML IVPB SCH (20:55)
--- NOTE | 2018-09-25 06:42 | Pulmonology Progress Note ---
Date of Encounter: 09/25/18 Time of Encounter: 06:42 Assessment and Plan (1) Acute respiratory failure with hypoxia Current Visit: Yes Status: Acute Continue to wean FiO2 to keep saturation around 90-92% Out of bed to chair and incentive spirometry should be encouraged (2) Pneumonia Current Visit: Yes Status: Acute Agree with broad-spectrum antibiotics to cover for hospital associated pathogens de-escalate based upon culture and sensitivity from BAL Will likely need 7-10 days of coverage based upon clinical response Qualifiers: Pneumonia type: due to unspecified organism Laterality: left Lung location: lower lobe of lung Qualified Code(s): J18.1 - Lobar pneumonia, u nspecified organism (3) Mucus plugging of bronchi Current Visit: Yes Status: Acute Status post bronchoscopy which was notable for thick mucus impaction of the primarily left tracheal bronchial tree. Chest x-ray today shows some improvement in aeration but suspect that she has had some degree of mucus plugging persist. Will trial conservative measures such as addition of mucolytic agent and chest percussive therapy along with the flutter valve. Continue bronchodilators He may benefit from additional bronchoscopy with this can be determined in the upcoming days her anticoagulation would have to be on hold for this (4) Pleural effusion Current Visit: Yes Status: Acute Fairly small pocket and would recommend trial of diuretic for now. The volume loss on the chest x-ray is more consistent with mucus plugging as opposed to compressive atelectasis from a large pleural effusion. Subjective Principal diagnosis: Pneumonia Interval history: Status post bronchoscopy without untoward effect. She says she is feeling better today she is more awake and alert. Oxygen requirements have gone down significantly. Objective PUL Vital signs: Last Vital Signs Temp 98.6 F 09/25/18 00:05 Pulse 50 09/25/18 04:22 Resp 16 09/25/18 04:22 BP 157/85 09/25/18 04:22 Pulse Ox 96 09/25/18 04:22 General appearance: no acute distress Eyes: nonicteric Auscultation: left: diminished breath sounds, bilateral: rhonchi Cardiovascular: regular rate and rhythm Gastrointestinal: normoactive bowel sounds, soft, non-tender Extremities: no clubbing, edema (Trace lower extremity edema) Musculoskeletal: no deformities normal mental status, non-focal exam mood appropriate Results - Laboratory Findings CBC and BMP: 09/23/18 21:39 09/23/18 21:39 PT/INR, D-dimer PT 13.7 Seconds (9.4-12.1) H 09/23/18 21:39 Abnormal lab findings: Abnormal lab results PT 13.7 Seconds (9.4-12.1) H 09/23/18 21:39 APTT 38.6 Seconds (26.0-36.0) H 09/23/18 21:39 Sodium 131 mEq/L (136-145) L 09/23/18 21:39 Carbon Dioxide 22 mEq/L (23-29) L 09/23/18 21:39 BUN 7 mg/dL (8-23) L 09/23/18 21:39 Creatinine 0.59 mg/dL (0.60-1.20) L 09/23/18 21:39 Glucose 146 mg/dL (70-105) H 09/23/18 21:39 Calculated Osmolality 273 (280-300) L 09/23/18 21:39 Lactic Acid 2.7 mmol/L (0.5-2.2) H 09/24/18 02:07 Fluid Appearance Cloudy (Clear) A 09/24/18 13:57 Vancomycin Trough 17 mcg/mL (5-10) H 09/25/18 00:45 - Microbiology Findings Microbiology Findings: Microbiology, Last 48 Hours 09/24/18 13:57 Respiratory Culture - Preliminary Left Upper Lobe Lung 09/24/18 13:54 Respiratory Culture - Preliminary Left Lower Lobe Lung 09/24/18 13:57 Fungal Culture - Preliminary Left Upper Lobe Lung Culture is incubating. 09/24/18 13:54 Fungal Culture - Preliminary Left Lower Lobe Lung Culture is incubating. 09/24/18 07:39 Legionella Antigen - Final Urine,Clean Catch Streptococcus pneumoniae Antigen (M - Final 09/23/18 21:47 Blood Culture - Preliminary Peripheral Venipuncture Culture is incubating and being continuously monitored for growth. Final report to follow. 09/23/18 21:39 Blood Culture - Preliminary Peripheral Venipuncture Culture is incubating and being continuously monitored for growth. Final report to follow. - Diagnostic Findings Chest x-ray: report reviewed, image reviewed - Clinical Findings Intake & Output: Intake & Output 09/24/18 09/24/18 09/25/18 15:59 23:59 07:59 Intake Total 100 / 1550 350 / 1550 100 / 100 Balance 100 / 1550 350 / 1550 100 / 100 Consult Discharge Plan - Plan Referrals: NONE,PCP [Primary Care Provider] -
[2018-09-25] MEDS: Multivit/Ca/Min/Fe/FA 1 TAB TABLET PO SCH (07:57)
[2018-09-25] MEDS: amLODIPine 5 MG TABLET PO SCH (07:57)
[2018-09-25] MEDS: Sennosides/Docusate Sodium TABLET PO SCH ×2 (07:57→20:44)
[2018-09-25] MEDS: Piperacillin/Tazobactam 3.375 GM in 0.9 % Sodium Chloride Mini Bag 100 ML IVPB SCH ×3 (07:58→23:39)
[2018-09-25] MEDS: GuaiFENesin Liq 200 MG/10 ML UDC PO PRN (07:58)
[2018-09-25] MEDS ORDERED: Apixaban 5 MG TABLET PO SCH (09:00)
--- NOTE | 2018-09-25 13:20 | Internal Med Progress Note ---
Hospitalist Progress Note - Encounter Date of Encounter: 09/25/18 Time of Encounter: 09:10 - Subjective Interval History: Patient was seen this AM. She stated that she is feeling better. She is still coughing with yellowish sputum production. She denied any worsening of her shortness of breath, palpitation or chest pain. She has no nausea/vomiting or abdominal pain. - Exam Vitals: Temp Pulse Resp BP Pulse Ox 98.3 F 90 18 130/76 92 09/25/18 11:30 09/25/18 11:30 09/25/18 11:30 09/25/18 11:30 09/25/18 11:30 Exam: General: Patient is alert, no acute distress, oriented x 2 ENT: Mucous membranes moist, normal hearing Neck: No JVD Respiratory: Diminished breath sounds at left base Cardiovascular: Regular rate and rhythm. s1 and s2 normal. Abdomen: Abdomen is soft, nontender. Bowel sounds are present Musculoskeletal: Spontaneously moving all extremities Skin: warm, dry, intact. Neuro: Alert oriented x 2. - Assessment and Plan (1) HTN (hypertension) Current Visit: Yes Status: Chronic (2) Pneumonia Current Visit: Yes Status: Acute (3) Mucus plugging of bronchi Current Visit: Yes Status: Acute (4) Acute respiratory failure with hypoxia Current Visit: Yes Status: Acute (5) History of pulmonary embolism Current Visit: Yes Status: Acute (6) Hyponatremia Current Visit: Yes Status: Acute - Summary of Assessment and Plan Summary of Assessment and Plan: 87-year-old female with history of HTN and prior pulmonary embolism on Eliquis who was admitted to the hospital due to dyspnea, cough and sputum production failing therapy at [facility]. CT scan of the lung did reveal lung collapse on the left side, patient was taken for bronchoscopy yesterday. Her symptoms were managed as following.: Acute hypoxic respiratory failure: - Due to PNA. On 6 L of oxygen, not on any at home. - BiPAP at night. Continue to wean off her oxygen to target O2 of 92%. - Continue flutter valve and incentive spirometry. Mucous plugging of bronchi: - Patient underwent bronchoscopy on 09/24 which showed throughout left tracheobronchial tree and also a mucous plug in the right mainstem bronchus. BAL was performed. Pneumonia: - Involving left lower lobe. Community-acquired vs aspiration. - She is afebrile, hemodynamically stable. Has no leukocytosis. - Patient currently on Zosyn, azithromycin and renally dosed vancomycin (Pedro trough levels 17). Follow BAL cultures. Blood cultures have been negative so far. Legionella and streptococcal antigens have also been negative. - Consult placed for speech therapy. - Check CBC tomorrow. History of pulmonary embolism: - Continue Eliquis Hyponatremia: - Sodium was 131 on admission. Likely from dehydration We will check for BMP tomorrow. Essential hypertension: -Blood pressure is well controlled. Continue Norvasc. High risk for complications. DVT prophylaxis: ELIQUIS I reviewed independently all laboratory workup, pertinent images including x- rays and CT scans. I also reviewed independently and EKGs and my findings are in the body of my assessment and plan. I ordered the laboratory workup and im ages myself. I discussed finding with patient's, their families, RN's and consultants involved in the care of the patient. - Time Spent with Patient Total time spent is greater than 50% in coordination of care (as documented) at patient's floor/unit and/or counseling patient: Plan of Care Discussed with: family Internal Medicine: Result - Labs CBC & Chem 7: 09/23/18 21:39 09/23/18 21:39 - ABG Interpretation ABG results: PT/INR, D-dimer PT 13.7 Seconds (9.4-12.1) H 09/23/18 21:39 - Impressions Impressions Chest X-Ray 09/25/18 06:06 IMPRESSION: Moderate to large left pleural effusion with associated volume loss within left hemithorax. D/ / Pham Cantor MD / Pham Cantor MD Interpreting Provider: Pham Cantor MD Consult Discharge Plan - Plan Referrals: NONE,PCP [Primary Care Provider] - (1) HTN (hypertension) Qualifiers: Hypertension type: essential hypertension Qualified Code(s): I10 - Essential (primary) hypertension (2) Pneumonia Qualifiers: Pneumonia type: due to unspecified organism Laterality: left Lung location: lower lobe of lung Qualified Code(s): J18.1 - Lobar pneumonia, unspecified organism
[2018-09-25] MEDS: Albuterol 2.5 MG/3 ML NEBULIZER IH PRN ×2 (15:34→21:15)
[2018-09-25] MEDS: Acetylcysteine 10% 2 ML INHSOL IH SCH ×2 (15:34→21:15)
[2018-09-25] MEDS ORDERED: Piperacillin/Tazobactam 3.375 GM in 0.9 % Sodium Chloride Mini Bag 100 ML IVPB SCH (16:13)
[2018-09-25] MEDS: MethylPREDNISolone 40 MG/ML VIAL IVP SCH (17:46)
[2018-09-25] MEDS: *HR* Enoxaparin 100 MG/ML SYRINGE SQ SCH (17:46)
[2018-09-25 21:03] LABS: ABG Base Excess -1 mEq/L (-2 to 3); ABG HCO3 23 mEq/L (21-27); ABG Oxygen Saturation 87 % (95-98); ABG PCO2 33 mmHg (35-45); ABG PH 7.44 pH Units (7.32-7.45); ABG PO2 50 mmHg (85-104); ABG TCO2 24 mEq/L (20-26)
[2018-09-25] MEDS: Azithromycin 500 MG in D5% in Water 250 ML IVPB SCH (21:28)
[2018-09-25 23:32] LABS: Adenovirus Not Detected (Not Detect); Bordetella Pertussis Not Detected (Not Detect); Chlamydophila pneumoniae Not Detected (Not Detect); Coronavirus 229E Not Detected (Not Detect); Coronavirus HKU1 Not Detected (Not Detect); Coronavirus NL63 Not Detected (Not Detect); Coronavirus OC43 Not Detected (Not Detect); Human Metapneumovirus Not Detected (Not Detect); Human Rhinovirus/Enterovirus Not Detected (Not Detect); Influenza A Subtype 2009 H1 Not Detected (Not Detect); Influenza A Untypeable Not Detected (Not Detect); Influenza B Not Detected (Not Detect); Mycoplasma pneumoniae Not Detected (Not Detect); Parainfluenza Virus 1 Not Detected (Not Detect); Parainfluenza Virus 2 Not Detected (Not Detect); Parainfluenza Virus 3 Not Detected (Not Detect); Parainfluenza Virus 4 Not Detected (Not Detect); Respiratory Syncytial Virus Not Detected (Not Detect)
[2018-09-26] MEDS: Acetylcysteine 10% 2 ML INHSOL IH SCH ×4 (04:10→22:16)
[2018-09-26] MEDS: Albuterol 2.5 MG/3 ML NEBULIZER IH PRN ×4 (04:10→22:15)
[2018-09-26] MEDS: *HR* Enoxaparin 100 MG/ML SYRINGE SQ SCH ×2 (05:12→16:47)
[2018-09-26] MEDS: MethylPREDNISolone 40 MG/ML VIAL IVP SCH (05:12)
[2018-09-26 05:29] LABS: Hematocrit 35.3 % (35.3-44.9); Hemoglobin 11.4 g/dL (11.5-15.4); Mean Corpuscular HGB Conc 32.3 g/dL (31.6-35.5); Mean Corpuscular Hemoglobin 31.8 pg (28.0-33.3); Mean Corpuscular Volume 98.3 fL (83.0-100.0); Mean Platelet Volume 9.9 fL (9.4-12.4); Platelet Count 294 K/mcL (140-400); Red Blood Count 3.59 M/mcL (3.82-4.97); White Blood Count 7.5 K/mcL (4.3-11.1)
[2018-09-26 05:53] LABS: BUN/Creatinine Ratio 19 (6-26); Blood Urea Nitrogen 15 mg/dL (8-23); Calcium 8.8 mg/dL (8.6-10.3); Carbon Dioxide 22 mEq/L (23-29); Chloride 104 mEq/L (98-107); Glucose 160 mg/dL (70-105); Osmolality,Calculated 290 (280-300); Potassium 4.3 mEq/L (3.5-5.1); Sodium 138 mEq/L (136-145); eGFR For African Americans > 60 (> 60); eGFR For Non-African Americans > 60 (> 60)
[2018-09-26] MEDS: Sennosides/Docusate Sodium TABLET PO SCH ×2 (08:40→20:21)
[2018-09-26] MEDS: amLODIPine 5 MG TABLET PO SCH (08:40)
[2018-09-26] MEDS: Multivit/Ca/Min/Fe/FA 1 TAB TABLET PO SCH (08:40)
[2018-09-26] MEDS: Piperacillin/Tazobactam 3.375 GM in 0.9 % Sodium Chloride Mini Bag 100 ML IVPB SCH ×3 (08:40→23:25)
[2018-09-26] MEDS ORDERED: Azithromycin 250 MG TABLET PO SCH (09:00)
[2018-09-26] MEDS ORDERED: Aminoglycoside Consult 1 EACH MC ONE (10:45)
[2018-09-26] MEDS ORDERED: E-Z-PAQUE (BARIUM SULF) SUSP 1 BOTTLE PO ONE (14:16)
[2018-09-26] MEDS ORDERED: E-Z-HD (BARIUM SULF) SUSPENSION PO ONE (14:16)
--- NOTE | 2018-09-26 14:34 | Internal Med Progress Note ---
Hospitalist Progress Note - Encounter Date of Encounter: 09/26/18 Time of Encounter: 10:00 - Subjective Interval History: Patient was seen this a.m. She looks more awake, alert and oriented. Her breathing is better however she still is coughing and bringing up sputum. - Exam Vitals: Temp Pulse Resp BP Pulse Ox 98.0 F 82 19 159/88 90 09/26/18 11:42 09/26/18 11:42 09/26/18 11:42 09/26/18 11:42 09/26/18 11:42 Exam: General: Patient is alert, no acute distress, oriented x 2 ENT: Mucous membranes moist, normal hearing Neck: No JVD, supple. Respiratory: Diminished breath sounds at left base, scattered wheezing. Cardiovascular: Regular rate and rhythm. s1 and s2 normal. Abdomen: Abdomen is soft, nontender. Bowel sounds are present Musculoskeletal: Spontaneously moving all extremities Skin: warm, dry, intact. Neuro: Alert oriented x 2. - Assessment and Plan (1) HTN (hypertension) Current Visit: Yes Status: Chronic (2) Pneumonia Current Visit: Yes Status: Acute (3) Mucus plugging of bronchi Current Visit: Yes Status: Acute (4) Acute respiratory failure with hypoxia Current Visit: Yes Status: Acute (5) History of pulmonary embolism Current Visit: Yes Status: Chronic (6) Hyponatremia Current Visit: Yes Status: Resolved - Summary of Assessment and Plan Summary of Assessment and Plan: 87-year-old female with history of HTN and prior pulmonary embolism on Eliquis who was admitted to the hospital due to dyspnea, cough and sputum production failing therapy at [facility]. CT scan of the lung did reveal lung collapse on the left side, patient was taken for bronchoscopy on 09/24. Her symptoms were managed as following.: Acute hypoxic respiratory failure: - Due to PNA. On 6-7 L of oxygen, not on any at home. - BiPAP at night. Continue to wean off her oxygen to target O2 of 92%. - Continue flutter valve and incentive spirometry. Mucous plugging of bronchi: - Patient underwent bronchoscopy on 09/24 which showed throughout left tracheobronchial tree and also a mucous plug in the right mainstem bronchus. BAL was performed. - Discussed with pulmonary service, no plans for repeat bronchoscopy at this point. - Will repeat CXR tomorrow Pneumonia: - Involving left lower lobe. Community-acquired vs aspiration. - She is afebrile, hemodynamically stable. Has no leukocytosis. Continue to need 6-7 liters of O2. - Patient currently on Zosyn, azithromycin and renally dosed vancomycin (Vanc trough levels 17) day 3. Follow BAL cultures. Blood cultures and BAL have been negative so far. Legionella and streptococcal antigens have also been negative. - speech therapy evaluated the patient with MBS today without a sign of aspiration. - Check CBC tomorrow. History of pulmonary embolism: - Continue Eliquis Hyponatremia: resolved Essential hypertension: -Blood pressure is well controlled. Continue Norvasc. High risk for complications. DVT prophylaxis: ASHWINI I reviewed independently all laboratory workup, pertinent images including x- rays and CT scans. I also reviewed independently and EKGs and my findings are in the body of my assessment and plan. I ordered the laboratory workup and images myself. I discussed finding with patient's, their families, RN's and consultants involved in the care of the patient. - Time Spent with Patient Total time spent is greater than 50% in coordination of care (as documented) at patient's floor/unit and/or counseling patient: Plan of Care Discussed with: patient Internal Medicine: Result - Labs CBC & Chem 7: 09/26/18 04:46 09/26/18 04:46 Labs: Short CBC 09/26/18 Range/Units 04:46 WBC 7.5 (4.3-11.1) K/mcL Hgb 11.4 L D (11.5-15.4) g/dL Hct 35.3 (35.3-44.9) % Plt Count 294 (140-400) K/mcL BMP 09/26/18 04:46 Sodium 138 Potassium 4.3 Chloride 104 Carbon Dioxide 22 L BUN 15 Creatinine 0.77 Glucose 160 H Calcium 8.8 - ABG Interpretation ABG results: ABG ABG pH 7.44 pH Units (7.32-7.45) 09/25/18 20:57 ABG pCO2 33 mmHg (35-45) L 09/25/18 20:57 ABG pO2 50 mmHg (85-104) L* 09/25/18 20:57 ABG O2 Saturation 87 % (95-98) L 09/25/18 20:57 PT/INR, D-dimer PT 13.7 Seconds (9.4-12.1) H 09/23/18 21:39 - Impressions Impressions Chest X-Ray 09/25/18 20:38 IMPRESSION: Multifocal airspace disease on the left with associated pleural effusion. Pneumonia is favored D/ / Hernan Paez / Hernan Paez Interpreting Provider: Hernan Paez Consult Discharge Plan - Plan Referrals: NONE,PCP [Primary Care Provider] - (1) HTN (hypertension) Qualifiers: Hypertension type: essential hypertension Qualified Code(s): I10 - Essential (primary) hypertension (2) Pneumonia Qualifiers: Pneumonia type: due to unspecified organism Laterality: left Lung location: lower lobe of lung Qualified Code(s): J18.1 - Lobar pneumonia, unspecified organism
--- NOTE | 2018-09-26 16:27 | Pulmonology Progress Note ---
Date of Encounter: 09/26/18 Time of Encounter: 16:24 Assessment and Plan (1) Acute respiratory failure with hypoxia Current Visit: Yes Status: Acute Poor underlying pulmonary reserve related to overall debility and body habitus. Acute worsening likely due to pneumonia (concern for aspiration as etiology) and mucous plugging. Her oxygen requirements are down trending. Goal oxygen saturation greater than 88%. (2) Atelectasis Current Visit: Yes Status: Acute The patient underwent bronchoscopy with therapeutic suctioning for mucus plugging. As above, oxygen requirements are improving. I see no indication for repeat bronchoscopy at this time. (3) Pneumonia Current Visit: Yes Status: Acute Preliminary cultures from the bronchoscopy are no growth to date. Legionella urinary antigen was negative. I have discontinued the vancomycin and azithromycin. Continue Zosyn for now. As above, concern for possible aspiration pneumonia, and I agree with speech and swallow evaluation. When transitioning to a by mouth antibiotic, Augmentin would be a reasonable choice to complete an 8 day course of antibiotics. Qualifiers: Pneumonia type: due to unspecified organism Laterality: left Lung location: lower lobe of lung Qualified Code(s): J18.1 - Lobar pneumonia, unspecified organism Subjective Principal diagnosis: Pneumonia Interval history: No acute overnight events. Overall improving oxygen requirements. Patient denies any shortness of breath at rest. Objective PUL Vital signs: Last Vital Signs Temp 98.0 F 09/26/18 11:42 Pulse 82 09/26/18 11:42 Resp 18 09/26/18 16:04 BP 159/88 09/26/18 11:42 Pulse Ox 91 09/26/18 16:04 General appearance: no acute distress Eyes: nonicteric ENT: oropharynx moist Neck: supple Auscultation: bilateral: rhonchi Cardiovascular: regular rate and rhythm Gastrointestinal: normoactive bowel sounds, soft, non-tender Integumentary: normal Extremities: no cyanosis non-focal exam mood appropriate, other (Somewhat confused) Results - Laboratory Findings CBC and BMP: 09/26/18 04:46 09/26/18 04:46 ABG ABG pH 7.44 pH Units (7.32-7.45) 09/25/18 20:57 ABG pCO2 33 mmHg (35-45) L 09/25/18 20:57 ABG pO2 50 mmHg (85-104) L* 09/25/18 20:57 ABG O2 Saturation 87 % (95-98) L 09/25/18 20:57 PT/INR, D-dimer PT 13.7 Seconds (9.4-12.1) H 09/23/18 21:39 Abnormal lab findings: Abnormal lab results RBC 3.59 M/mcL (3.82-4.97) L 09/26/18 04:46 Hgb 11.4 g/dL (11.5-15.4) L D 09/26/18 04:46 PT 13.7 Seconds (9.4-12.1) H 09/23/18 21:39 APTT 38.6 Seconds (26.0-36.0) H 09/23/18 21:39 ABG pCO2 33 mmHg (35-45) L 09/25/18 20:57 ABG pO2 50 mmHg (85-104) L* 09/25/18 20:57 ABG O2 Saturation 87 % (95-98) L 09/25/18 20:57 Sodium 131 mEq/L (136-145) L 09/23/18 21:39 Carbon Dioxide 22 mEq/L (23-29) L 09/26/18 04:46 BUN 7 mg/dL (8-23) L 09/23/18 21:39 Creatinine 0.59 mg/dL (0.60-1.20) L 09/23/18 21:39 Glucose 160 mg/dL (70-105) H 09/26/18 04:46 Calculated Osmolality 273 (280-300) L 09/23/18 21:39 Lactic Acid 2.7 mmol/L (0.5-2.2) H 09/24/18 02:07 Fluid Appearance Cloudy (Clear) A 09/24/18 13:57 Vancomycin Trough 17 mcg/mL (5-10) H 09/25/18 00:45 - Microbiology Findings Microbiology Findings: Microbiology, Last 48 Hours 09/24/18 13:57 Respiratory Culture - Preliminary Left Upper Lobe Lung 09/24/18 13:54 Acid Fast Stain - Final Left Lower Lobe Lung 09/24/18 13:57 Acid Fast Stain - Final Left Upper Lobe Lung 09/25/18 22:48 Streptococcus pneumoniae Antigen (M - Final Urine,Clean Catch 09/24/18 13:54 Respiratory Culture - Preliminary Left Lower Lobe Lung 09/24/18 13:57 Fungal Culture - Preliminary Left Upper Lobe Lung Culture is incubating. 09/24/18 13:54 Fungal Culture - Preliminary Left Lower Lobe Lung Culture is incubating. 09/24/18 07:39 Legionella Antigen - Final Urine,Clean Catch Streptococcus pneumoniae Antigen (M - Final - Clinical Findings Intake & Output: Intake & Output 09/26/18 09/26/18 09/26/18 07:59 15:59 23:59 Intake Total 100 / 710 610 / 710 Output Total 0 / 0 Balance 100 / 710 610 / 710 Consult Discharge Plan - Plan Referrals: NONE,PCP [Primary Care Provider] -
[2018-09-27] MEDS: Albuterol 2.5 MG/3 ML NEBULIZER IH PRN ×4 (03:51→22:50)
[2018-09-27] MEDS: Acetylcysteine 10% 2 ML INHSOL IH SCH ×4 (03:51→22:51)
[2018-09-27] MEDS: *HR* Enoxaparin 100 MG/ML SYRINGE SQ SCH (05:54)
[2018-09-27 06:44] LABS: Hematocrit 37.5 % (35.3-44.9); Hemoglobin 12.3 g/dL (11.5-15.4); Mean Corpuscular HGB Conc 32.8 g/dL (31.6-35.5); Mean Corpuscular Hemoglobin 31.6 pg (28.0-33.3); Mean Corpuscular Volume 96.4 fL (83.0-100.0); Mean Platelet Volume 9.4 fL (9.4-12.4); Platelet Count 297 K/mcL (140-400); Red Blood Count 3.89 M/mcL (3.82-4.97); Red Cell Distribution Width 13.2 % (11.5-14.5); White Blood Count 6.8 K/mcL (4.3-11.1)
[2018-09-27 07:34] LABS: BUN/Creatinine Ratio 19 (6-26); Blood Urea Nitrogen 12 mg/dL (8-23); Calcium 8.8 mg/dL (8.6-10.3); Carbon Dioxide 25 mEq/L (23-29); Chloride 105 mEq/L (98-107); Glucose 103 mg/dL (70-105); Osmolality,Calculated 284 (280-300); Potassium 3.2 mEq/L (3.5-5.1); Sodium 137 mEq/L (136-145); eGFR For African Americans > 60 (> 60); eGFR For Non-African Americans > 60 (> 60)
[2018-09-27] MEDS: Multivit/Ca/Min/Fe/FA 1 TAB TABLET PO SCH (08:25)
[2018-09-27] MEDS: Piperacillin/Tazobactam 3.375 GM in 0.9 % Sodium Chloride Mini Bag 100 ML IVPB SCH ×3 (08:26→23:45)
[2018-09-27] MEDS: Sennosides/Docusate Sodium TABLET PO SCH ×2 (08:26→21:53)
[2018-09-27] MEDS: amLODIPine 5 MG TABLET PO SCH (08:26)
[2018-09-27] MEDS ORDERED: Potassium Chloride Elixir 20 MEQ/15 ML UDC PO ONE (13:06)
--- NOTE | 2018-09-27 13:12 | Internal Med Progress Note ---
Hospitalist Progress Note - Encounter Date of Encounter: 09/27/18 Time of Encounter: 10:00 - Subjective Interval History: Patient was seen this a.m. She looks more awake, alert and oriented. Her breathing is better however she still is coughing and bringing up sputum. Denied chest pain or shortness of breath. - Exam Vitals: Temp Pulse Resp BP Pulse Ox 98.0 F 71 18 174/84 92 09/27/18 11:51 09/27/18 11:51 09/27/18 11:51 09/27/18 11:51 09/27/18 11:51 Exam: General: Patient is alert, no acute distress, oriented x 2 ENT: Mucous membranes moist, normal hearing Neck: No JVD, supple. Respiratory: Diminished breath sounds at left base, no labored breathing Cardiovascular: Regular rate and rhythm. s1 and s2 normal. Abdomen: Abdomen is soft, nontender. Bowel sounds are present Musculoskeletal: Spontaneously moving all extremities Skin: warm, dry, intact. Neuro: Alert oriented x 2. - Assessment and Plan (1) HTN (hypertension) Current Visit: Yes Status: Chronic (2) Pneumonia Current Visit: Yes Status: Acute (3) Mucus plugging of bronchi Current Visit: Yes Status: Acute (4) Acute respiratory failure with hypoxia Current Visit: Yes Status: Acute (5) History of pulmonary embolism Current Visit: Yes Status: Chronic (6) Hyponatremia Current Visit: Yes Status: Resolved - Summary of Assessment and Plan Summary of Assessment and Plan: 87-year-old female with history of HTN and prior pulmonary embolism on Eliquis who was admitted to the hospital due to dyspnea, cough and sputum production failing therapy at [facility]. CT scan of the lung did reveal lung collapse on the left side, patient was taken for bronchoscopy on 09/24. Her symptoms were managed as following.: Acute hypoxic respiratory failure: - Due to PNA. On 2 L of oxygen today compared to 6L yesterday. - BiPAP at night. Continue to wean off her oxygen to target O2 of 92%. - Continue flutter valve and incentive spirometry. Pulm is following. Mucous plugging of bronchi: - Patient underwent bronchoscopy on 09/24 which showed throughout left tracheobronchial tree and also a mucous plug in the right mainstem bronchus. BAL was performed. - Discussed with pulmonary service, no plans for repeat bronchoscopy at this point. - repeat CXR today without significant changes. Pneumonia: - Involving left lower lobe. Community-acquired vs aspiration. - She is afebrile, hemodynamically stable. Has no leukocytosis. on 2 liters of O2. - Patient currently on Zosyn day4, will switch to augmentin before discharge as per pulm recommendation. Blood cultures and BAL have been negative so far. Legionella and streptococcal antigens have also been negative. - speech therapy evaluated the patient with MBS today without a sign of aspiration. History of pulmonary embolism: - Continue Eliquis Hyponatremia: resolved Essential hypertension: -Blood pressure is notwell controlled. increase Norvasc to 10 mg. High risk for complications. DVT prophylaxis: ASHWINI I reviewed independently all laboratory workup, pertinent images including x- rays and CT scans. I also reviewed independently and EKGs and my findings are in the body of my assessment and plan. I ordered the laboratory workup and images myself. I discussed finding with patient's, their families, RN's and consultants involved in the care of the patient. - Time Spent with Patient Total time spent is greater than 50% in coordination of care (as documented) at patient's floor/unit and/or counseling patient: Plan of Care Discussed with: patient Internal Medicine: Result - Labs CBC & Chem 7: 09/27/18 06:28 09/27/18 06:28 Labs: Short CBC 09/27/18 Range/Units 06:28 WBC 6.8 (4.3-11.1) K/mcL Hgb 12.3 (11.5-15.4) g/dL Hct 37.5 (35.3-44.9) % Plt Count 297 (140-400) K/mcL BMP 09/27/18 06:28 Sodium 137 Potassium 3.2 L Chloride 105 Carbon Dioxide 25 BUN 12 Creatinine 0.62 Glucose 103 Calcium 8.8 - ABG Interpretation ABG results: ABG ABG pH 7.44 pH Units (7.32-7.45) 09/25/18 20:57 ABG pCO2 33 mmHg (35-45) L 09/25/18 20:57 ABG pO2 50 mmHg (85-104) L* 09/25/18 20:57 ABG O2 Saturation 87 % (95-98) L 09/25/18 20:57 PT/INR, D-dimer PT 13.7 Seconds (9.4-12.1) H 09/23/18 21:39 - Impressions Impressions Videofluoroscopic Swallow 09/26/18 08:59 IMPRESSION: 1. Transient laryngeal penetration of thin barium, without evidence of aspiration. 2. No evidence of laryngeal penetration or aspiration with nectar thick liquid or applesauce consistency barium. 3. Please see separate speech pathology report for full discussion of findings and recommendations. D/ / Bonifacio Cantor MD / Bonifacio Cantor MD Interpreting Provider: Bonifacio Cantor MD Chest X-Ray 09/27/18 07:00 IMPRESSION: 1. No significant interval change of a left base opacity with moderate pleural effusion. 2. COPD. D/ / 09/27/2018 07:41:10 Fiorella Issa MD / Shantel Reyes Interpreting Provider: Fiorella Issa MD Consult Discharge Plan - Plan Referrals: NONE,PCP [Primary Care Provider] - (1) HTN (hypertension) Qualifiers: Hypertension type: essential hypertension Qualified Code(s): I10 - Essential (primary) hypertension (2) Pneumonia Qualifiers: Pneumonia type: due to unspecified organism Laterality: left Lung location: lower lobe of lung Qualified Code(s): J18.1 - Lobar pneumonia, unspecified organism
--- NOTE | 2018-09-27 16:48 | Pulmonology Progress Note ---
Date of Encounter: 09/27/18 Time of Encounter: 16:46 Assessment and Plan (1) Acute respiratory failure with hypoxia Current Visit: Yes Status: Acute Poor underlying pulmonary reserve related to overall debility and body habitus. Acute worsening likely due to pneumonia (concern for aspiration as etiology) and mucous plugging. Her oxygen requirements are down trending, and she was on room air at the time of my exam today. Goal oxygen saturation greater than 88%. (2) Atelectasis Current Visit: Yes Status: Acute The patient underwent bronchoscopy with therapeutic suctioning for mucus plugging. As above, oxygen requirements are improving. I see no indication for repeat CXR or bronchoscopy at this time. (3) Pneumonia Current Visit: Yes Status: Acute Preliminary cultures from the bronchoscopy are no growth to date. Legionella urinary antigen was negative. I have discontinued the vancomycin and azithro mycin. Continue Zosyn for now. As above, concern for possible aspiration pneumonia, and I agree with speech and swallow evaluation. When transitioning to a by mouth antibiotic, Augmentin would be a reasonable choice to complete an 8 day course of antibiotics. Comment: No further recommendations from a pulmonary standpoint we will sign off. Please call with questions. Qualifiers: Pneumonia type: due to unspecified organism Laterality: left Lung location: lower lobe of lung Qualified Code(s): J18.1 - Lobar pneumonia, unspecified organism Subjective Principal diagnosis: Pneumonia Interval history: No acute overnight events. Overall improving oxygen requirements. Patient denies any shortness of breath at rest, but she is pleasantly confused. Objective PUL Vital signs: Last Vital Signs Temp 98.0 F 09/27/18 11:51 Pulse 71 09/27/18 11:51 Resp 18 09/27/18 11:51 BP 174/84 09/27/18 11:51 Pulse Ox 92 09/27/18 11:51 General appearance: no acute distress Eyes: nonicteric ENT: oropharynx moist Auscultation: bilateral: rhonchi Cardiovascular: regular rate and rhythm Gastrointestinal: normoactive bowel sounds, soft, non-tender Integumentary: normal Extremities: no cyanosis non-focal exam other (Pleasantly confused) Results - Laboratory Findings CBC and BMP: 09/27/18 06:28 09/27/18 06:28 ABG ABG pH 7.44 pH Units (7.32-7.45) 09/25/18 20:57 ABG pCO2 33 mmHg (35-45) L 09/25/18 20:57 ABG pO2 50 mmHg (85-104) L* 09/25/18 20:57 ABG O2 Saturation 87 % (95-98) L 09/25/18 20:57 PT/INR, D-dimer PT 13.7 Seconds (9.4-12.1) H 09/23/18 21:39 Abnormal lab findings: Abnormal lab results RBC 3.59 M/mcL (3.82-4.97) L 09/26/18 04:46 Hgb 11.4 g/dL (11.5-15.4) L D 09/26/18 04:46 PT 13.7 Seconds (9.4-12.1) H 09/23/18 21:39 APTT 38.6 Seconds (26.0-36.0) H 09/23/18 21:39 ABG pCO2 33 mmHg (35-45) L 09/25/18 20:57 ABG pO2 50 mmHg (85-104) L* 09/25/18 20:57 ABG O2 Saturation 87 % (95-98) L 09/25/18 20:57 Sodium 131 mEq/L (136-145) L 09/23/18 21:39 Potassium 3.2 mEq/L (3.5-5.1) L 09/27/18 06:28 Carbon Dioxide 22 mEq/L (23-29) L 09/26/18 04:46 BUN 7 mg/dL (8-23) L 09/23/18 21:39 Creatinine 0.59 mg/dL (0.60-1.20) L 09/23/18 21:39 Glucose 160 mg/dL (70-105) H 09/26/18 04:46 Calculated Osmolality 273 (280-300) L 09/23/18 21:39 Lactic Acid 2.7 mmol/L (0.5-2.2) H 09/24/18 02:07 Fluid Appearance Cloudy (Clear) A 09/24/18 13:57 Vancomycin Trough 17 mcg/mL (5-10) H 09/25/18 00:45 - Microbiology Findings Microbiology Findings: Microbiology, Last 48 Hours 09/24/18 13:54 Legionella Culture - Final Left Lower Lobe Lung 09/24/18 13:57 Legionella Culture - Final Left Upper Lobe Lung 09/24/18 13:54 Respiratory Culture - Final Left Lower Lobe Lung 09/24/18 13:57 Respiratory Culture - Final Left Upper Lobe Lung 09/24/18 13:54 Acid Fast Stain - Final Left Lower Lobe Lung 09/24/18 13:57 Acid Fast Stain - Final Left Upper Lobe Lung 09/25/18 22:48 Streptococcus pneumoniae Antigen (M - Final Urine,Clean Catch - Clinical Findings Intake & Output: Intake & Output 09/27/18 09/27/18 09/27/18 07:59 15:59 23:59 Intake Total 100 / 700 600 / 700 Output Total 300 / 500 200 / 500 Balance -200 / 200 400 / 200 Consult Discharge Plan - Plan Referrals: NONE,PCP [Primary Care Provider] -
[2018-09-27] MEDS: Apixaban 5 MG TABLET PO SCH (18:43)
[2018-09-28] MEDS: Albuterol 2.5 MG/3 ML NEBULIZER IH PRN (04:51)
[2018-09-28] MEDS: Acetylcysteine 10% 2 ML INHSOL IH SCH ×2 (04:51→10:33)
[2018-09-28 07:22] VITALS: BP 158/89
[2018-09-28] MEDS: Apixaban 5 MG TABLET PO SCH (08:38)
[2018-09-28] MEDS: Sennosides/Docusate Sodium TABLET PO SCH (08:38)
[2018-09-28] MEDS: Multivit/Ca/Min/Fe/FA 1 TAB TABLET PO SCH (08:38)
[2018-09-28] MEDS: Piperacillin/Tazobactam 3.375 GM in 0.9 % Sodium Chloride Mini Bag 100 ML IVPB SCH (08:40)
[2018-09-28] MEDS ORDERED: amLODIPine 5 MG TABLET PO SCH (09:00)
--- NOTE | 2018-09-28 09:28 | Discharge Summary ---
- NOTES TO OUTPATIENT PROVIDER Notes to Outpatient Provider: Patient was admitted for shortness of breath and left lung collapse and possible aspiration. Bronchoscopy revealed mucous plugging and patient was placed on Zosyn and switched to Augmentin at discharge. Patient needs to use incentive spirometry while awake. Orders not resulted at time of discharge: Pending orders 09/23/18 20:56 Culture,Sputum with Gram Stain [RM] Stat 09/23/18 21:47 Culture,Blood [BC] Stat 09/24/18 13:54 AFB Culture, Respiratory [TB] Routine AFB Smear [TB] Routine Fungal Culture [MYC] Routine Legionella Culture [RM] Routine 09/24/18 13:57 AFB Culture, Respiratory [TB] Routine AFB Smear [TB] Routine Fungal Culture [MYC] Routine Legionella Culture [RM] Routine Date of Encounter: 09/28/18 Time of Encounter: 10:00 - Discharge Diagnosis (1) HTN (hypertension) Priority: Secondary Status: Chronic Qualifiers: Hypertension type: essential hypertension Qualified Code(s): I10 - Essential (primary) hypertension (2) Pneumonia Priority: Primary Status: Acute Qualifiers: Pneumonia type: due to unspecified organism Laterality: left Lung location: lower lobe of lung Qualified Code(s): J18.1 - Lobar pneumonia, unspecified organism (3) Mucus plugging of bronchi Priority: Secondary Status: Acute (4) Acute respiratory failure with hypoxia Priority: Secondary Status: Resolved (5) History of pulmonary embolism Priority: Secondary Status: Chronic (6) Hyponatremia Priority: Secondary Status: Resolved Hospital course: 87-year-old female with history of HTN and prior pulmonary embolism on Eliquis who was admitted to the hospital due to dyspnea, cough and sputum production failing therapy at [facility]. CT scan of the lung did reveal lung collapse on the left side, patient was taken for bronchoscopy on 09/24. She was found to have mucus plugging. High suspicion for aspiration and patient was evaluated by speech therapy with modified barium swallow which was normal. Her BAL cultures were negative, blood cultures, Streptococcus and Legionella studies were negative. Her oxygen requirements went down significantly to room air on discharge. Patient was treated with Zosyn for 5 days and she will be switched to Augmentin for 9 days. We will continue pulmonary toilet with incentive spirometry. Today, patient is hemodynamically stable. Asymptomatic. [facility]. Discharge discussed with: patient - Time Spent with Patient Total time spent providing and/or coordinating discharge services: 40 minutes - Discharge Medications Prescriptions: New amLODIPine [Norvasc] 10 mg PO DAILY #60 tablet Continued Multivit-Min/Iron/Folic/Lutein [Centrum Silver Women Tablet] 1 tab PO DAILY Glucosamine HCl/Chondr Canas A Na [Cvs Glucosamine-Chondr Tablet] 1 tab PO DAILY Cranberry Conc/Ascorbic Acid [Cranberry Concentrate Softgel] 2 cap PO DAILY Polyethylene Glycol 3350 [MiraLAX] 17 gm PO DAILY #14 powd.pack Sennosides/Docusate Sodium [Senna Plus] 2 tab PO BID Acetaminophen [Tylenol] 500 mg PO Q6HR PRN PRN Reason: Mild Pain Apixaban [Eliquis] 5 mg PO BID Omeprazole [PriLOSEC] 20 mg PO DAILY Ascorbic Acid/Multivit-Min [Emergen-C Immune Plus Packet] 1 packet PO DAILY GuaiFENesin/Dextromethorphan [Chld Robitussin Cough-Chest Dm] 10 ml PO Q6H PRN PRN Reason: Cough Ipratropium/Albuterol Neb [Duoneb] 3 ml IH Q6HR PRN PRN Reason: Shortness Of Breath Cran/Vitc/Mannose/Fos/Bromeln [Uti-Stat Liquid] 30 ml PO DAILY Discontinued amLODIPine [Norvasc] 5 mg PO DAILY Home Medications: Cranberry Conc/Ascorbic Acid [Cranberry Concentrate Softgel] 2 cap PO DAILY 1 03/03/15 [History] Glucosamine HCl/Chondr Canas A Na [Cvs Glucosamine-Chondr Tablet] 1 tab PO DAILY 01/02/16 [History] Multivit-Min/Iron/Folic/Lutein [Centrum Silver Women Tablet] 1 tab PO DAILY 01/02/16 [History] Polyethylene Glycol 3350 [MiraLAX] 17 gm PO DAILY #14 powd.pack 02/18/16 [Rx] Sennosides/Docusate Sodium [Senna Plus] 2 tab PO BID 05/21/16 [History] Acetaminophen [Tylenol] 500 mg PO Q6HR PRN 09/24/18 [History] Apixaban [Eliquis] 5 mg PO BID 09/24/18 [History] Omeprazole [PriLOSEC] 20 mg PO DAILY 09/24/18 [History] Ascorbic Acid/Multivit-Min [Emergen-C Immune Plus Packet] 1 packet PO DAILY 09/25/18 [History] Cran/Vitc/Mannose/Fos/Bromeln [Uti-Stat Liquid] 30 ml PO DAILY 09/25/18 [History] GuaiFENesin/Dextromethorphan [Chld Robitussin Cough-Chest Dm] 10 ml PO Q6H PRN 09/25/18 [History] Ipratropium/Albuterol Neb [Duoneb] 3 ml IH Q6HR PRN 09/25/18 [History] amLODIPine [Norvasc] 10 mg PO DAILY #60 tablet 09/28/18 [Rx] Allergies/Adverse Reactions: Allergy/AdvReac Type Severity Reaction Status Date / Time No Known Allergies Allergy Verified 09/25/18 17:05 Date of admission: 09/23/18 20:16 Primary care physician: PCP NONE Consults: 09/23/18 21:06 Consult to Pulmonology [CONS] Routine Consulting Provider: [facility] Reason for Consult: 87 year old woman transferred here for acute respiratory failure believed secondary to mucus plugging causing left lung collapse Call Completed: No 09/24/18 11:41 Consult to Speech Therapy [CONS] Routine Comment: Evaluate, develop and implement POC Reason for Consult: bedside swallow Call Completed: No 09/26/18 08:15 Consult to Drafter Seismograph [CONS] Routine Reason for SW Consult: from [facility] 09/26/18 08:18 Consult to Nurse Navigator [CONS] Routine Comment: pn 09/26/18 16:24 Consult to Respiratory Therapy [CONS] Routine Reason for Consult: please provide patient with flutter valve (acapella device) and instruct in use Call Completed: No - Constitutional Vitals: Temp Pulse Resp BP Pulse Ox 98.0 F 63 17 158/89 93 09/28/18 07:20 09/28/18 07:20 09/28/18 07:20 09/28/18 07:20 09/28/18 07:20 Exam: General: Patient is alert, no acute distress, oriented x 2 ENT: Mucous membranes moist, normal hearing Neck: No JVD, supple. Respiratory: Normal lung sounds bilaterally, nonlabored breathing. Cardiovascular: Regular rate and rhythm. s1 and s2 normal. Abdomen: Abdomen is soft, nontender. Bowel sounds are present Musculoskeletal: Spontaneously moving all extremities Skin: warm, dry, intact. Neuro: Alert oriented x 2. - Patient Status Disposition: Transfer SNF Condition: Good Functional capacity at discharge: uses cane/walker Overall status at discharge: patient is back to baseline - Discharge Instructions Follow Up With: NONE,PCP [Primary Care Provider] - - Diet and Activity Activity: as per physical therapy Diet: low salt diet
--- NOTE | 2018-09-28 09:35 | Physician Discharge Referral ---
ExtendedCare Referral Info Transfer To: ECF Provider in Charge after Transfer: PCP Institutional Level of Care: Skilled - Diagnosis (1) HTN (hypertension) Priority: Secondary Status: Chronic (2) Pneumonia Priority: Primary Status: Acute (3) Mucus plugging of bronchi Priority: Secondary Status: Acute (4) Acute respiratory failure with hypoxia Priority: Secondary Status: Resolved (5) History of pulmonary embolism Priority: Secondary Status: Chronic (6) Hyponatremia Priority: Secondary Status: Resolved Prognosis: Good Aware of Diagnosis: Patient - Transfer Medications Prescriptions: amLODIPine [Norvasc] 10 mg PO DAILY #60 tablet Home Medications: Cranberry Conc/Ascorbic Acid [Cranberry Concentrate Softgel] 2 cap PO DAILY 01/02/16 [History] Glucosamine HCl/Chondr Canas A Na [Cvs Glucosamine-Chondr Tablet] 1 tab PO DAILY 01/02/16 [History] Multivit-Min/Iron/Folic/Lutein [Centrum Silver Women Tablet] 1 tab PO DAILY 01/02/16 [History] Polyethylene Glycol 3350 [MiraLAX] 17 gm PO DAILY #14 powd.pack 02/18/16 [Rx] Sennosides/Docusate Sodium [Senna Plus] 2 tab PO BID 05/21/16 [History] Acetaminophen [Tylenol] 500 mg PO Q6HR PRN 09/24/18 [History] Apixaban [Eliquis] 5 mg PO BID 09/24/18 [History] Omeprazole [PriLOSEC] 20 mg PO DAILY 09/24/18 [History] Ascorbic Acid/Multivit-Min [Emergen-C Immune Plus Packet] 1 packet PO DAILY 09/25/18 [History] Cran/Vitc/Mannose/Fos/Bromeln [Uti-Stat Liquid] 30 ml PO DAILY 09/25/18 [History] GuaiFENesin/Dextromethorphan [Chld Robitussin Cough-Chest Dm] 10 ml PO Q6H PRN 09/25/18 [History] Ipratropium/Albuterol Neb [Duoneb] 3 ml IH Q6HR PRN 09/25/18 [History] amLODIPine [Norvasc] 10 mg PO DAILY #60 tablet 09/28/18 [Rx] Allergies/Adverse Reactions: Allergy/AdvReac Type Severity Reaction Status Date / Time No Known Allergies Allergy Verified 09/25/18 17:05 - Respiratory Orders Smoking Cessation: Smoking cessation has been advised. For more information, call the [place] Tobacco Quit Line at 9-307-DFJV-NOW. - Ancillary Orders May use pressure relief devices daily prn - Mobility Orders Chair - Rehabiliation Orders Rehab Potential: Fair Rehab Orders: Evaluation for Physical Therapy, Evaluation for Occupational Therapy - Diet Orders Cardiac (small biteS, slow rate, and no straws to decrease risk of penetration.) CERTIFICATION: I certify that the transfer of the above named patient to an Extended Care Facility is necessary for the continuing treatment of the diagnosis listed. The above information is true and accurate reflection of patient's current condition. Confidential - Redisclosure prohibited without a patient's written consent.
== END 2018-09-28 10:46 | DRG 166 ==
LOC: SUATTDRO 20:16 → 2ANU 20:16
PROVIDERS: ADMIT Student in an Organized Health Care Education/Training Program; ATTEND Internal Medicine